=== PATIENT | female | born 1985 | race Hispanic/Latino ===

== ENCOUNTER 2017-07-07 19:54 | Emergency (ER) | payer OTHER, SELFPAY ==
--- NOTE | 2017-07-07 21:49 | RAD REPORT ---
EXAM DESCRIPTION: US - Transvaginal OB - 07/07/2017 9:27 pm CLINICAL HISTORY: with abdominal pain and vaginal bleeding COMPARISON: None. FINDINGS: The evaluation of the endometrium was limited on the endovaginal images. Transabdominal ul trasound was then performed. The uterus measures 11 x 6 x 6 centimeters. A gestational sac is not visualized within the endometri um. A small ill-defined fluid collection is present. Within the myometrium is a fluid collection nicola uring 18 x 6 millimeters. The left ovary is normal in size and echotexture. The right ovary was not seen. Significant free flui d is not visualized. IMPRESSION: A gestational sac within the endometrium is not visualized. A small amount of ill-define d fluid is present. This may indicate an . Other considerations include an early intrauterine in which the gestational sac is not yet seen. Ectopic i can also have this appea soham. This all should be correlated clinically and with serial beta HCG levels. A follow-up ultrasound in 1 week is recommended for re-evaluation
[2017-07-07 23:06] LABS: Absolute Lymphocytes (CBC) 3.5 K/uL (0.7-4.9); Absolute Monocytes 0.6 K/uL (0.1-1.3); Basophils % 0.5 % (0-1.3); Eosinophils % 0.9 % (0-4.4); Hematocrit 37.3 % (36.0-45.0); Lymphocytes % 28.6 % (15.3-44.8); MCH 29.4 pg (27.0-35.0); MCV 88.2 fL (80-100); MPV 8.6 fL (7.6-11.3); Monocytes % 4.7 % (3.3-12.3); RBC Red Blood Cell Count 4.23 M/uL (3.86-4.86)
[2017-07-07 23:11] LABS: Bicarbonate 22 mEq/L (21-31); Glucose Level 265 mg/dL (65-120); Potassium 3.5 mEq/L (3.6-5.0); Sodium Level 135 mEq/L (135-145)
[2017-07-07] MEDS ORDERED: NA CHLORIDE 0.9% 1,000 ML ONE (23:11)
[2017-07-07 23:12] LABS: BUN Blood Urea Nitrogen 12 mg/dL (6-20); Glomerular Filtration Rate > 90 mL/min (=/>90)
--- NOTE | 2017-07-08 00:32 | ER ---
Nurse's Notes [facility] Name: Arabella Horne Age: 31 yrs Sex: Female : 1985 Arrival Date: 07/07/2017 Time: 19:57 Bed 23 Private MD: Diagnosis: Spontaneous Presentation: 07/07 20:16 Presenting complaint: Patient states: that she is 9 weeks and has been fc spotting since Friday. Today she started to bleed heavily around 1800. Also having lower abd and lower back pain. Transition of care: patient was not received from another setting of care. Onset of symptoms was July 04, 2017. Care prior to arrival: None. 20:16 Method Of Arrival: Ambulatory fc 20:16 Acuity: RANDA 3 fc Triage Assessment: 20:19 General: Appears uncomfortable, Behavior is calm, cooperative, appropriate for age. fc Pain: Complains of pain in back and abdomen Quality of pain is described as aching, crampy, Pain began 2 hours ago. Is continuous. EENT: No deficits noted. Neuro: Level of Consciousness is awake, alert, obeys commands, Oriented to person, place, time, situation. Cardiovascular: No deficits noted. Respiratory: No deficits noted. GI: No deficits noted. : Reports vaginal bleeding that is bright red, with clots, heavy flow has gone thru 6 pads since 6 pm. Derm: Skin is pink, warm \\T\\ dry. Musculoskeletal: Circulation, motion, and sensation intact. Capillary refill < 3 seconds, Range of motion: intact in all extremities. 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 - Social history:: Smoking status: Patient/guardian denies using tobacco. Screenin:50 Abuse screen: Denies threats or abuse. Nutritional screening: No deficits noted. tl3 Tuberculosis screening: No symptoms or risk factors identified. Fall Risk None identified. Assessment: 20:50 Obstetrical Assessment: General assessment: awake and alert, anxious, Contractions tl3 Patient reports abdominal cramping, spotting started Friday, saw OB told to just watch and if it got worse to come in to the ER. Tonight at around 5pm pt reports that she felt a "gush" and went to the bathroom passed a 50 cent piece sized blood clot. General: Appears uncomfortable, obese, well groomed, well developed, well nourished, Behavior is calm, cooperative, appropriate for age. Pain: Complains of pain in abdomen. Neuro: Level of Consciousness is awake, alert, obeys commands, Oriented to person, place, time, situation, Appropriate for age. Cardiovascular: Heart tones S1 S2 present Capillary refill < 3 seconds in right in left fingers. Respiratory: Airway is patent Trachea midline Breath sounds are clear bilaterally. GI: No signs and/or symptoms were reported involving the gastrointestinal system. : No signs and/or symptoms were reported regarding the genitourinary system. EENT: No signs and/or symptoms were reported regarding the EENT system. 20:58 Reassessment: pt to ultra sound. tl3 22:11 Reassessment: Patient appears in no apparent distress at this time. No changes from tl3 previously documented assessment. Patient and/or family updated on plan of care and expected duration. Pain level reassessed. Patient is alert, oriented x 3, equal unlabored respirations, skin warm/dry/pink. pelvic exam completed by Dr Harper. 22:55 Reassessment: No changes from previously documented assessment. Patient and/or family tl3 updated on plan of care and expected duration. Pain level reassessed. Patient is alert, oriented x 3, equal unlabored respirations, skin warm/dry/pink. pt feeling weak and sweaty, Dr Doyle at bedside. 07/08 00:16 Reassessment: Patient appears in no apparent distress at this time. Patient and/or tl3 family updated on plan of care and expected duration. Pain level reassessed. Patient is alert, oriented x 3, equal unlabored respirations, skin warm/dry/pink. pt states that she is feeling much better. 00:28 Reassessment: pt able to ambulate around nursing station without difficulty, states tl3 that she does not feel weak anymore. Vital Signs: 07/07 20:17 BP 167 / 111; Pulse 111; Resp 18; Temp 98.7(O); Pulse Ox 97% on R/A; Weight 111.13 kg fc (R); Height 5 ft. 2 in. (157.48 cm) (R); Pain 5/10; 22:11 BP 107 / 74; Pulse 110; Resp 18; Pulse Ox 95% ; tl3 22:55 BP 107 / 74; Pulse 94; Resp 18; Pulse Ox 100% ; tl3 07/08 00:14 BP 122 / 88; Pulse 94; Resp 18; Pulse Ox 100% ; tl3 07/07 20:17 Body Mass Index 44.81 (111.13 kg, 157.48 cm) fc Vitals: 07/07 22:59 Heart Tones too early in . tl3 ED Course: 19:57 Patient arrived in ED. ds1 20:17 Triage completed. fc 20:17 Arm band placed on left wrist. Patient placed in waiting room, Patient notified of wait fc time. 20:34 Ede Harper MD is Attending Physician. gs 20:49 Aliza Gayle, RN is Primary Nurse. tl3 20:50 No apparent distress. Resting quietly. Awaiting ED provider evaluation. tl3 20:50 Patient has correct armband on for positive identification. Placed in gown. Bed in low tl3 position. Call light in reach. Side rails up X 1. Adult w/ patient. 20:50 Pulse ox on. NIBP on. Door closed. Warm blanket given. tl3 20:50 No provider procedures requiring assistance completed. tl3 21:27 US Transvaginal Ob In Process Unspecified. EDMS 21:27 Ultrasound completed. Patient tolerated well. aa4 22:49 Attending Physician role handed off by Ede Harper MD pkl 22:49 Gab Doyle MD is Attending Physician. pkl 22:55 Inserted saline lock: 22 gauge in right forearm, using aseptic technique. Blood tl3 collected. 07/08 00:28 IV discontinued, intact, bleeding controlled, No redness/swelling at site. Pressure tl3 dressing applied. Administered Medications: 07/07 22:59 Drug: NS 0.9% 1000 ml Route: IV; Rate: 1000 ml; Site: right forearm; tl3 07/08 00:39 Follow up: IV Status: Completed infusion; IV Intake: 1000ml tl3 Point of Care Testing: Urine : 00:42 hCG Reading: Positive; tl3 Intake: 00:39 IV: 1000ml; Total: 1000ml. tl3 Outcome: 07/07 22:23 Discharged to home ambulatory. tl3 Condition: stable Discharge instructions given to patient, Instructed on discharge instructions, follow up and referral plans. 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 chino 00:39 Patient left the ED. tl3 Signatures: Dispatcher [employer] EDGab Mata MD MD pkl Chretien, Felicia RN RN Linda Kenney ds1 Jennifer Castillo Gregory, MD MD gs Lowrey, Tammy, RN RN tl3 Corrections: (The following items were deleted from the chart) 07/07 20:19 20:17 Arm band placed on left wrist. Patient placed in an exam room, on a stretcher, [facility]
--- NOTE | 2017-07-08 00:32 | EDPHYS ---
Physician Documentation [facility] Name: Arabella Horne Age: 31 yrs Sex: Female : 1985 Arrival Date: 07/07/2017 Time: 19:57 Bed 23 Private MD: ED Physician Gab Doyle HPI: 07/07 21:37 This 31 yrs old Female presents to ER via Ambulatory with complaints of gs Vaginal Bleeding, + Preg <12wks, Abdominal Cramping. 21:37 The patient presents to the emergency department with vaginal bleeding, that is gs moderate, with clots. The estimated gestational age is 9 weeks. Associated signs and symptoms: Pertinent negatives: chest pain, vomiting. The patient has experienced a previous episode. The patient has been recently seen by a physician: the patient's primary care provider. 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 - Social history:: Smoking status: Patient/guardian denies using tobacco. ROS: 21:37 All other systems are negative. gs 07/08 00:31 Eyes: Negative for injury, pain, redness, and discharge. pkl Exam: 07/07 21:37 Head/Face: Normocephalic, atraumatic. Eyes: Pupils equal round and reactive to light, gs extra-ocular motions intact. Lids and lashes normal. Conjunctiva and sclera are non-icteric and not injected. Cornea within normal limits. Periorbital areas with no swelling, redness, or edema. ENT: Nares patent. No nasal discharge, no septal abnormalities noted. Tympanic membranes are normal and external auditory canals are clear. Oropharynx with no redness, swelling, or masses, exudates, or evidence of obstruction, uvula midline. Mucous membranes moist. Neck: Trachea midline, no thyromegaly or masses palpated, and no cervical lymphadenopathy. Supple, full range of motion without nuchal rigidity, or vertebral point tenderness. No Meningismus. Chest/axilla: Normal chest wall appearance and motion. Nontender with no deformity. No lesions are appreciated. Cardiovascular: Regular rate and rhythm with a normal S1 and S2. No gallops, murmurs, or rubs. Normal PMI, no JVD. No pulse deficits. Respiratory: Lungs have equal breath sounds bilaterally, clear to auscultation and percussion. No rales, rhonchi or wheezes noted. No increased work of breathing, no retractions or nasal flaring. Abdomen/GI: Soft, non-tender, with normal bowel sounds. No distension or tympany. No guarding or rebound. No evidence of tenderness throughout. Back: No spinal tenderness. No costovertebral tenderness. Full range of motion. Skin: Warm, dry with normal turgor. Normal color with no rashes, no lesions, and no evidence of cellulitis. MS/ Extremity: Pulses equal, no cyanosis. Neurovascular intact. Full, normal range of motion. Neuro: Awake and alert, GCS 15, oriented to person, place, time, and situation. Cranial nerves II-XII grossly intact. Motor strength 5/5 in all extremities. Sensory grossly intact. Cerebellar exam normal. Normal gait. Constitutional: The patient appears alert, awake. 21:51 : Pelvic Exam: External exam: is normal, Speculum exam: mild bleeding, blood clots in gs vaginal vault, os that is open, bimanual exam reveals no adnexa tenderness or masses bilaterally, the nurse was present for the exam. Vital Signs: 20:17 BP 167 / 111; Pulse 111; Resp 18; Temp 98.7(O); Pulse Ox 97% on R/A; Weight 111.13 kg fc (R); Height 5 ft. 2 in. (157.48 cm) (R); Pain 5/10; 22:11 BP 107 / 74; Pulse 110; Resp 18; Pulse Ox 95% ; tl3 22:55 BP 107 / 74; Pulse 94; Resp 18; Pulse Ox 100% ; tl3 07/08 00:14 BP 122 / 88; Pulse 94; Resp 18; Pulse Ox 100% ; tl3 07/07 20:17 Body Mass Index 44.81 (111.13 kg, 157.48 cm) MDM: 07/07 20:44 Patient medically screened. gs 21:37 Differential diagnosis: threatened Ab, inevitable Ab, complete Ab, ectopic . gs Data reviewed: vital signs, nurses notes. Response to treatment: the patient's symptoms have mildly improved after treatment, and as a result, I will discharge patient. 07/08 00:31 Patient medically screened. pkl 07/07 20:46 Order name: Quantitative Hcg; Complete Time: 00:19 07/07 20:46 Order name: Abo/rh Typing; Complete Time: 23:50 07/07 20:46 Order name: Basic Metabolic Panel; Complete Time: 00:19 07/07 20:46 Order name: CBC with Diff; Complete Time: 23:50 07/07 20:46 Order name: US Transvaginal Ob; Complete Time: 21:51 07/07 20:46 Order name: IV Saline Lock; Complete Time: 00:40 07/07 20:46 Order name: Labs collected and sent; Complete Time: 00:40 07/07 20:46 Order name: NPO; Complete Time: 00:40 Administered Medications: 07/07 22:59 Drug: NS 0.9% 1000 ml Route: IV; Rate: 1000 ml; Site: right forearm; tl3 07/08 00:39 Follow up: IV Status: Completed infusion; IV Intake: 1000ml tl3 Point of Care Testing: Urine : 00:42 hCG Reading: Positive; tl3 Disposition: 07/08/17 00:31 Discharged to Home. Impression: Spontaneous . - Condition is Stable. - Medication Reconciliation Form, Thank You Letter, Antibiotic Education, Prescription Opioid Use form. - Follow up: Private Physician; When: Tomorrow; Reason: Re-evaluation by your physician. - Problem is new. - Symptoms have improved. Signatures: Dispatcher [employer] EDMS Gab Doyle MD MD pkl Chretien, Felicia RN RN Ede Dodge MD MD Aliza Gayle RN RN tl3 Corrections: (The following items were deleted from the chart) 07/07 23:02 22:58 TROPONIN (EMERG DEPT USE ONLY)+[email or web address] ordered. EDMS EDMS
[2017-07-08 00:48] VITALS: TEMP 98.7
[2017-07-08 00:50] VITALS: O2SAT 100
[2017-07-08 00:52] VITALS: BP 122/88
== END 2017-07-08 00:39 | disposition home or self-care (01) ==
LOC: ER 19:54
DX: O03.9 Complete or unspecified spontaneous abortion without complication
CPT/HCPCS: 36415; 76817; 80048; 84702; 85025; 86900; 86901; 96360; 96361; 99284; J7030

== ENCOUNTER 2019-03-08 17:14 | Emergency (ER) | payer OTHER ==
--- OUTSIDE RECORDS SUMMARY | 2019-03-08 17:22 | XMS REPORT | Summary of Care ---
:1985 Author Organization [facility] Address [address] [place] [address] Care Team Providers Name Role Phone Nisreen Phillips Primary Care Provider Reason for Visit Reason Comments Care Encounter Details Date Type Department Care Team Description 11/10/2018 [facility] Supervision of high risk in second trimester (Primary Dx); Visit KRISTEN Cochran Pregestational diabetes mellitus, modified White class B; [address] Elderly multigravida in second trimester; [place], [place] S Obesity affecting in second trimester; [address] [address] History of delivery, currently ; [phone] [place], [place] Cessation of tobacco use in previous 12 months; [address] Multiparity; [phone] Tubal ligation status; [phone] Pre-existing essential hypertension during , antepartum; (Fax) Rubella non-immune status, antepartum Allergies No Known Allergiesdocumented as of this encounter (statuses as of 11/10/2018) Medications Medication Sig Dispensed Refills Start Date End Date Status Blood-Glucose Meter Check glucose 4 1 Each 0 08/21/2018 Active (TRUE METRIX GLUCOSE xdaily METER) MiscIndications: Pregestational diabetes mellitus, modified White class B blood sugar diagnostic Check glucose 4x 1 Box 3 08/21/2018 Active (TRUE METRIX GLUCOSE daily TEST STRIP) stripIndications: Pregestational diabetes mellitus, modified White class B metFORMIN 500 mg Take 1 tab PO 60 tablet 5 09/10/2018 Active tabletIndications: QAM and 1 tab PO Pre-existing essential QHS hypertension during , antepartum CITRANATAL ASSURE 35 mg TAKE 1 CAPSULE 6 09/03/2018 Active iron-1 mg -50 mg-300 mg AND 1 TABLET BY combo pack MOUTH EVERY DAY lancets 26 gauge Misc CHECK GLUCOSE 4 3 08/21/2018 Active TIMES A DAY aspirin 81 mg EC Take 1 tablet by 60 tablet 6 10/01/2018 Active tabletIndications: mouth daily. Pregestational diabetes mellitus, modified White class B, Pre-existing essential hypertension during , antepartum amoxicillin 500 mg TAKE 1 CAPSULE 0 10/21/2018 Active capsule BY MOUTH FOUR TIMES A DAY TILL ALL TAKEN. TAKE WITH FOOD AND DRINK PLENTY OF WATER clindamycin 300 mg TAKE ONE CAPSULE 0 10/23/2018 Active capsule BY MOUTH 3 TIMES A DAY UNTIL GONE TAKE WITH FOOD AND DRINK PLENTY OF WATER documented as of this encounter (statuses as of 11/10/2018) Active Problems Problem Noted Date Tubal ligation status 10/01/2018 Rubella non-immune status, antepartum 08/21/2018 Overview: Address pp Pregestational diabetes mellitus, modified White class B 08/21/2018 Overview: Failed hr gtt >200mgdl Cessation of tobacco use in previous 12 months 08/19/2018 Overview: Quit with on 07/20/18 Multiparity 08/19/2018 Hypertension in , pre-existing, antepartum 08/19/2018 Overview: Reports when she lost weight her bp was wnl, but she reports she has gained the weight again AMA (advanced maternal age) multigravida 35+ 08/19/2018 Supervision of high risk , antepartum 07/03/2017 Obesity affecting 07/03/2017 History of delivery, currently 07/03/2017 Overview: X2 History of gestational diabetes in prior , currently 2017 Estimated Date of Delivery Comments Yes 03/19/2019 Based on last menstrual period of 06/12/2018 documented as of this encounter (statuses as of 11/10/2018) Resolved Problems Problem Noted Date Resolved Date Previous delivery affecting , antepartum 09/10/20182018 Family planning counseling 01/21/2018 08/19/2018 Rubella non-immune status, antepartum 07/04/2017 08/19/2018 Pregestational diabetes mellitus, modified White class B 07/04/20172018 Anemia of mother in , condition 03/13/2016 07/03/2017 Routine follow-up 03/13/2016 07/03/2017 39 weeks gestation of 02/12/2016 03/13/2016 Decreased movement in , antepartum 01/20/2016 03/13/2016 Gestational diabetes mellitus, antepartum 08/23/2015 07/03/2017 Overview: GDMA2 vs class B DM. Hx GDM in prior . Prior child 9# 14 oz. Hgb A1c 6.3% on 09/27. Started on ADA diet and metformin 500 mg daily. Abnormal maternal glucose tolerance, antepartum 08/16/2015 03/13/2016 Overview: 1hr 176mgdl, 3hr-failed Previous delivery affecting , delivered 08/15/20152015 Overview: Last CS x 1 ([facility] 9 lb 15 oz). 3 prior - 40+ w 7 lb 15oz 39w 8 lb 4 oz, 39 w 9lb 4 oz weeks. Need op note. Interested in HELLEN. Multiparity 08/15/2015 03/13/2016 Supervision of high risk , antepartum 08/15/2015 03/13/2016 Obesity affecting 08/15/2015 03/13/2016 Vaginal bleeding in patient at less than 20 weeks 08/15/20152015 gestation Elevated blood pressure reading without diagnosis of 08/15/2015 03/13/2016 hypertension documented as of this encounter (statuses as of 11/10/2018) Immunizations Name Administration Dates Next Due Influenza Virus Vaccine Quad IM 3+ 01/11/2016, 12/28/2015 (Deferred: YRS Vaccine Unavailable) Tdap 12/28/2015, 11/12/2013 documented as of this encounter Social History Tobacco Use Types Packs/Day Years Used Date Former Smoker Cigarettes 0.01 2014 - 07/20/2018 Smokeless Tobacco: Never Used Comments: 1 ciggarette a day Alcohol Use Drinks/Week oz/Week Comments No 0 Standard drinks or equivalent 0.0 Estimated Date of Delivery Comments Yes 03/19/2019 Based on last menstrual period of 06/12/2018 Sex Assigned at Date Recorded Not on file Job Start Date Occupation Industry Not on file Not on file Not on file Travel History Travel Start Travel End No recent travel history available. documented as of this encounter Last Filed Vital Signs Vital Sign Reading Time Taken Comments Blood Pressure 134/86 11/10/2018 10:23 AM CDT Pulse 77 11/10/2018 10:23 AM CDT Temperature 36.8 C (98.2 F) 11/10/2018 10:23 AM CDT Respiratory Rate 16 11/10/2018 10:23 AM CDT Oxygen Saturation - - Inhaled Oxygen Concentration - - Weight 103.1 kg (227 lb 6 oz) 11/10/2018 10:23 AM CDT Height 154.9 cm (5' 1") 11/10/2018 10:23 AM CDT Body Mass Index 42.96 11/10/2018 10:23 AM CDT documented in this encounter Progress Notes Nisreen Phillips, GLASS BLOCK INSTALLER - 11/10/2018 10:30 AM CDT Chief complaint: Chief Complaint Patient presents with Care HPI Arabella Horne is a 32 year old female is a @ 21w4d here for visit. Patient's last menstrual period was 2018. Estimated Date of Delivery: 03/19/19 Today she denies any complaints or concerns. She is taking PNV. She reports good FM. She denies any ctx/cramping, VB, LOF, KENYON , visual disturbance, vaginal discharge or dysuria. She denies any foreign travel. She also denies any physical, sexual or emotional abuse. Histories OB History Para Term AB Living 7 5 5 1 5 SAB TAB Ectopic Multiple Live Births 1 5 # Outcome Date GA Lbr Trey/2nd Weight Sex Delivery Anes PTL Lv 7 Current 6 SAB 07/13/17 5 Term 02/12/16 37w2d 9 lb 4 oz (4.195 kg) M SEC CSE N KIM Complications: Gestational diabetes 4 Term 11/29/13 40w0d 9 lb 14 oz (4.479 kg) F SEC EPI N KIM 3 Term 05/24/04 40w0d 9 lb 4 oz (4.196 kg) F NORMAL SPONT IV narcotic N KIM 2 Term 06/08/02 40w0d 8 lb 4 oz (3.742 kg) M NORMAL SPONT IV narcotic N KIM 1 Term 03/31/01 40w0d 7 lb 15 oz (3.6 kg) F NORMAL SPONT IV narcotic N KIM Past Medical History: Diagnosis Date Anemia of mother in , condition 03/13/2016 Gestational diabetes mellitus, antepartum 08/23/2015 Hypertension 2010 been off meds x 5 years, bp improved with weight loss Family History Problem Relation Age of Onset Diabetes Mother Hypertension Mother No Significant Medical Problems Father Diabetes Sister Hypertension Maternal Aunt Arthritis NoFHx Asthma NoFHx Breast Cancer NoFHx defects NoFHx Colon Cancer NoFHx Ovarian Cancer NoFHx Uterine Cancer NoFHx Depression NoFHx Heart NoFHx Genetic NoFHx High cholesterol NoFHx Mental retardation NoFHx Psychiatry NoFHx Other - see comments NoFHx Neurological NoFHx Osteoporosis NoFHx Family Status Relation Name Status Mo Alive Fa Alive Sis Alive MAunt Alive MGMo MGFa PGMo Alive PGFa NoFHx (Not Specified) Past Surgical History: Procedure Laterality Date SECTION 11/29/2013 SECTION N/A 02/12/2016 Surgeon: Daniel Munguia; Location: Labor and Delivery - [place] THORACOTOMY,CYST REMOVAL 1991 Social History Socioeconomic History Marital status: Single Spouse name: Not on file Number of children: Not on file Years of education: Not on file Highest education level: Not on file Occupational History Not on file Social Needs Financial resource strain: Not on file Food insecurity: Worry: Not on file Inability: Not on file Transportation needs: Medical: Not on file Non-medical: Not on file Tobacco Use Smoking status: Former Smoker Packs/day: 0.01 Types: Cigarettes Start date: 2014 Last attempt to quit: 07/20/2018 Years since quittin.3 Smokeless tobacco: Never Used Tobacco comment: 1 ciggarette a day Substance and Sexual Activity Alcohol use: No Alcohol/week: 0.0 oz Drug use: No Sexual activity: Yes Partners: Male Comment: Last intercourse 06/16/2018 Lifestyle Physical activity: Days per week: Not on file Minutes per session: Not on file Stress: Not on file Relationships Social connections: Talks on phone: Not on file Gets together: Not on file Attends congregational service: Not on file Active member of club or organization: Not on file Attends meetings of clubs or organizations: Not on file Relationship status: Not on file Intimate partner violence: Fear of current or ex partner: Not on file Emotionally abused: Not on file Physically abused: Not on file Forced sexual activity: Not on file Other Topics Concern Not on file Social History Narrative Pt denies current or past physical, sexual or emotional abuse. Patient lives alone with children. Social History Substance and Sexual Activity Sexual Activity Yes Partners: Male Comment: Last intercourse 06/16/2018 Labs No new labs, I have reviewed the patient's labs. and Routine Visit on 10/26/2018 Component Date Value POCT U SP GRAV 10/26/2018 . POCT PH U 10/26/2018 . POCT U LEUK EST 10/26/2018 . POCT U NIT 10/26/2018 . POCT U PROT 10/26/2018 neg POCT U GLU 10/26/2018 neg POCT U KETONE 10/26/2018 . POCT U UROBILI 10/26/2018 . POCT U BILI 10/26/2018 . POCT U BLD 10/26/2018 . POCT Glu (age>30days) 10/26/2018 112* AFP-MS 10/26/2018 60.9 AFP-MS Interpretation 10/26/2018 Value:NTD SCREENING RESULTS: Gestation Age: Weeks 19 days 3 based on _X_ LMP __ PE __ US. Maternal Serum AFP value in ng/mL is 60.9. The corrected AFP MOM is 1.68. NORMAL RANGE is less than 2.5 MOM in NTD screening. The NTD screen result is: _X_ Negative __ Positive with a risk of 1 in Routine Visit on 10/12/2018 Component Date Value POCT U SP GRAV 10/12/2018 . POCT PH U 10/12/2018 . POCT U LEUK EST 10/12/2018 . POCT U NIT 10/12/2018 . POCT U PROT 10/12/2018 Trace POCT U GLU 10/12/2018 Neg POCT U KETONE 10/12/2018 . POCT U UROBILI 10/12/2018 . POCT U BILI 10/12/2018 . POCT U BLD 10/12/2018 . Radiology Radiology pending. Allergies Arabella has No Known Allergies. Medications Arabella has a current medication list which includes the following prescription(s) : aspirin, citranatal assure, lancets, metformin, blood sugar diagnostic, blood- glucose meter, amoxicillin, and clindamycin. Review of Systems Constitutional: Negative for appetite change, fatigue and fever. Eyes: Negative for visual disturbance. Respiratory: Negative. Cardiovascular: Negative for palpitations and leg swelling. Gastrointestinal: Negative for abdominal pain, constipation, diarrhea, nausea and vomiting. Genitourinary: Negative. Negative for dysuria, vaginal bleeding, vaginal discharge and pelvic pain. Musculoskeletal: Negative. Skin: Negative for rash. Neurological: Negative for dizziness, light-headedness and headaches. Psychiatric/Behavioral: Negative. BP 134/86 (BP Location: Right arm, Patient Position: Sitting, BP CUFF SIZE: Adult Small) | Pulse 77 | Temp 36.8 C (98.2 F) (Oral) | Resp 16 | Ht 5' 1 " (1.549 m) | Wt 227 lb 6 oz (103.1 kg) | LMP 06/12/2018 | BMI 42.96 kg/m Pregravid BMI: Could not be calculated Physical Exam Vitals reviewed. Constitutional: She is oriented to person, place, and time. She appears well- developed and well-nourished. See flowsheet Cardiovascular: No peripheral edema present. Pulmonary/Chest: Normal inspiratory effort. Abdominal: Abdomen is soft. Neuro/Psychiatric: She has a normal mood and affect. She is oriented to person, place, and time. Skin: Skin normal. Assessment/Plan 1. Supervision of high risk in second trimester 21w4d PTL warnings reviewed NIPT WNL, MSAFP WNL Was on amoxicillin and clindamycin for dental work, now stopped 2. Pregestational diabetes mellitus, modified White class B Metformin 500mg BID compliant Glucose log reviewed Fasting BG range 80-96, 2/7 >95 Postprandial BG range 80-130, 4/16 > 120 Continue current diet and regimen, reinforced strict adherence and exact portion control. Daily exercise x 30 minutes. Continue LDA Baseline 24 hour urine 240mg protein 3. Elderly multigravida in second trimester AMA, s/p NIPT and MSAFP WNL, detailed anatomy scan today Has missed appts with genetics, number given to call to reschedule 4. Obesity affecting in second trimester The patient is asked to make an attempt to improve diet and exercise patterns to aid in medical management of this problem. 5. History of delivery, currently Plan ERCS 6. Cessation of tobacco use in previous 12 months Reports compliance 7. Multiparity Desires BTL 8. Tubal ligation status Sign consents at 28 weeks 9. Pre-existing essential hypertension during , antepartum BP today 134/86 Denies s/s PIH States she checks BP at home and WNL, log given to document home BPs and bring to next visit Baseline 24 hr urine 240mg protein 10. Rubella non-immune status, antepartum Offer vaccine Return to clinic in 2 weeks. Reviewed patient instructions and provided printed copy. at 21w4d This visit did not involve counseling and coordination that comprised more than 50% of the visit time. documented in this encounter Plan of Treatment Date Type Specialty Care Team Description 11/24/2018 Routine Visit OB Satellites Nisreen Phillips FNP [address] [place] [address] [phone] 12/08/2018 Tmd Teacher Assistant Visit Maternal Medicine Health Maintenance Due Date Last Done Comments PNEUMOCOCCAL 0-64 YEARS COMBINED 12/02/1989 SERIES (1 of 1 - PPSV23) EYE EXAM 12/02/1993 LDL-C 12/02/1993 URINE MICROALBUMIN 12/02/1993 INFLUENZA VACCINE 12/13/2018 01/11/2016 HgA1C 02/27/2019 08/27/2018, 07/03/2017, 12/11/2015, Additional history exists CREATININE (SERUM) 08/28/2019 08/27/2018, 08/27/2018, 07/03/2017, Additional history exists FOOT EXAM 08/28/2019 08/27/2018 PAP SMEAR 08/19/2021 08/19/2018, 08/15/2015 DTaP,Tdap,and Td Vaccines (3 - Td) 12/27/2025 12/28/2015, 11/12/2013 documented as of this encounter Procedures Procedure Name Priority Date/Time Associated Diagnosis Comments POCT URINALYSIS Routine 11/10/2018 10:48 AM Supervision of high Results for this CDT risk in procedure are in second trimester the results section. documented in this encounter Results POCT URINALYSIS W SPECIFIC GRAVITY (11/10/2018 10:48 AM CDT) POCT U SP GRAV . 1.005 - 1.025 mg/dl POCT PH U . 5 - 8 mg/dl POCT U LEUK EST . Negative - Negative POCT U NIT . Negative - Negative POCT U PROT neg Negative - Negative POCT U GLU neg Negative - Negative POCT U KETONE . Negative - Negative POCT U UROBILI . 0.2 - 1 mg/dl POCT U BILI . Negative - Negative POCT U BLD . Negative - Negative POCT U COLOR POCT U APPEAR Specimen Urine - URINE, CLEAN CATCH documented in this encounter Visit Diagnoses Diagnosis Supervision of high risk in second trimester - Primary Unspecified high-risk Pregestational diabetes mellitus, modified White class B Diabetes mellitus of mother, complicating , childbirth, or the puerperium, unspecified as to episode of care Elderly multigravida in second trimester Obesity affecting in second trimester History of delivery, currently Previous delivery, unspecified as to episode of care or not applicable Cessation of tobacco use in previous 12 months Multiparity Tubal ligation status Pre-existing essential hypertension during , antepartum Rubella non-immune status, antepartum Other specified complication, antepartum documented in this encounter Insurance Payer Benefit Plan / Subscriber ID Effective Dates Phone Address Type Group [facility] xxxxxxxxx 2018-Present Medicaid HEALTH PLAN - HEALTH MANAGED MEDICAID documented as of this encounter Advance Directives Name Relationship Healthcare Agent Relationship Communication Meredith Rios Other Primary healthcare agent
--- OUTSIDE RECORDS SUMMARY | 2019-03-08 17:22 | XMS REPORT | Summary of Care ---
:1985 Author Organization [facility] Address [address] [place] [id number] Care Team Providers Name Role Phone Nisreen Phillips [facility] Primary Care Provider Encounter Details Date Type Department Care Team Description 11/11/2018 Abstract [facility] Valeria Mondragon C, [address] [place] [address] [address] [facility] [phone] [place] [address] Allergies No Known Allergiesdocumented as of this encounter (statuses as of 11/11/2018) Medications Medication Sig Dispensed Refills Start Date [...] as of this encounter (statuses as of 11/11/2018) Active Problems Problem Noted Date Tubal ligation [...] as of this encounter (statuses as of 11/11/2018) Resolved Problems Problem Noted Date Resolved Date [...] delivered 08/15/20152015 Overview: Last CS x 1 ([facility] 9 lb 15 oz). 3 prior - [...] as of this encounter (statuses as of 11/11/2018) Immunizations Name Administration Dates Next Due Influenza [...] of this encounter Last Filed Vital Signs Not on filedocumented in this encounter Plan of Treatment Date Type Specialty Care Team Description 11/24/2018 Routine Visit OB Satellites Nisreen Phillips, QUILLER HAND [address] [place] [address] [phone] 12/08/2018 Director Corporate Security Visit Maternal Medicine Health Maintenance Due Date [...] 12/28/2015, 11/12/2013 documented as of this encounter Results Not on filedocumented in this encounter Insurance Payer Benefit Plan / Subscriber ID Effective Dates Phone Address Type Group [facility] [place] [facility] xxxxxxxxx 2018-Present Medicaid HEALTH PLAN - HEALTH MANAGED MEDICAID documented as of this encounter Advance Directives Name Relationship Healthcare Agent Relationship Communication Meredith Dyson Primary healthcare agent
--- OUTSIDE RECORDS SUMMARY | 2019-03-08 17:22 | XMS REPORT ---
:1985 Author Organization [facility] Address [address] [place] [address] Dr. [address] [place] [address] Care Team Providers Name Role Phone Unavailable Unavailable Unavailable Problems This patient has no known problems. Allergies, Adverse Reactions, Alerts This patient has no known allergies or adverse reactions. Medications This patient has no known medications.
--- OUTSIDE RECORDS SUMMARY | 2019-03-08 17:22 | XMS REPORT | Summary of Care ---
:1985 Author Organization [facility] Address [address] [place] [address] Care Team Providers Name Role Phone Nisreen Phillips Primary Care Provider Encounter Details Date Type Department Care Team Description 11/10/2018 Orders Only [facility] Doctor Unassigned, No [address] [facility] [place] [address] [address] [place] [address] Allergies No Known Allergiesdocumented as of this encounter (statuses as of 11/18/2018) Medications Medication Sig Dispensed Refills Start Date [...] as of this encounter (statuses as of 11/18/2018) Active Problems Problem Noted Date Tubal ligation [...] as of this encounter (statuses as of 11/18/2018) Resolved Problems Problem Noted Date Resolved Date [...] delivered 08/15/20152015 Overview: Last CS x 1 ([facility] 9 lb 15 oz). 3 prior [...] as of this encounter (statuses as of 11/18/2018) Immunizations Name Administration Dates Next Due Influenza [...] 11/24/2018 Routine Visit OB Satellites Nisreen Phillips, MACHINE ADJUSTER LEADER [address] [place] [address] [phone] 12/08/2018 Medical Charge Entry Specialist Visit Maternal Medicine 01/05/2019 Medical Charge Entry Specialist Visit Maternal Medicine 02/02/2019 Medical Charge Entry Specialist Visit Maternal Medicine 03/02/2019 Medical Charge Entry Specialist Visit Maternal Medicine Health Maintenance Due Date [...] Procedure Name Priority Date/Time Associated Diagnosis Comments PATIENT QUESTIONNAIRE Routine 11/10/2018 12:01 AM CDT documented in this encounter Results Not on filedocumented in this encounter Insurance Payer Benefit Plan / Subscriber ID Effective Dates Phone Address Type Group [place] [place] [facility] [place] [facility] xxxxxxxxx 2018-Present Medicaid HEALTH PLAN - HEALTH MANAGED MEDICAID documented as of this encounter Advance Directives Name Relationship Healthcare Agent Relationship Communication Meredith Dyson Primary healthcare agent
--- OUTSIDE RECORDS SUMMARY | 2019-03-08 17:22 | XMS REPORT | Summary of Care ---
:1985 Author Organization [facility] Address [address] [place] [id number] Care Team Providers Name Role Phone Nisreen Phillips Primary Care Provider Reason for Visit Reason Comments Talk To Nurse Encounter Details Date Type Department Care Team Description 11/19/2018 Telephone [facility]- Nisreen Phillips FNP Talk To Nurse Ellen [address] [facility] [place] [address] [place] [address] [phone] Allergies No Known Allergiesdocumented as of this encounter (statuses as of 11/19/2018) Medications Medication Sig Dispensed Refills Start Date [...] as of this encounter (statuses as of 11/19/2018) Active Problems Problem Noted Date Tubal ligation [...] as of this encounter (statuses as of 11/19/2018) Resolved Problems Problem Noted Date Resolved Date [...] 08/15/20152015 Overview: Last CS x 1 ([facility] 9 lb 15 oz). 3 prior - [...] as of this encounter (statuses as of 11/19/2018) Immunizations Name Administration Dates Next Due Influenza [...] 11/24/2018 Routine Visit OB Satellites Nisreen Phillips, INKJET OPERATOR [address] [place] [address] [phone] 12/08/2018 Crown Assembly Machine Set Up Mechanic Visit Maternal Medicine 01/05/2019 Crown Assembly Machine Set Up Mechanic Visit Maternal Medicine 02/02/2019 Crown Assembly Machine Set Up Mechanic Visit Maternal Medicine 03/02/2019 Crown Assembly Machine Set Up Mechanic Visit Maternal Medicine Health Maintenance Due Date [...] ID Effective Dates Phone Address Type Group [place] [facility] [place] [facility] xxxxxxxxx 2018-Present Medicaid HEALTH PLAN - HEALTH MANAGED MEDICAID documented as of this encounter Advance Directives Name Relationship Healthcare Agent Relationship Communication Meredith Rios Other Primary healthcare agent
--- OUTSIDE RECORDS SUMMARY | 2019-03-08 17:22 | XMS REPORT | Summary of Care ---
:1985 Author Organization [facility] Address [address] [place] [address] Care Team Providers Name Role Phone Nisreen Phillips Primary Care Provider Reason for Visit Reason Comments ULTRASOUND (Routine) Status Reason Specialty Diagnoses / Referred By Referred To Procedures Contact Contact Closed Maternal Diagnoses Elderly multigravida in first trimester Pregestational diabetes mellitus, modified White class B Nisreen Phillips Medicine Procedures CONSULT MATERNAL MEDICINE ULTRASOUND Preferred Location: KRISTEN Das [address] [place] [address] Encounter Details Date Type Department Care Team Description 11/10/2018 Meter Repairer [facility] Obesity complicating , second trimester; Ultrasound- Ellen Rhodes MD Diabetes mellitus complicating , antepartum; [address] VD Previous delivery, antepartum condition or complication ; [place], [place] [id number] Maternal care for (suspected) damage to fetus by drugs, not applicable or unspecified; [address] [place], [place] Elderly multigravida in second trimester [phone] Allergies No Known Allergiesdocumented as of this [...] delivered 08/15/20152015 Overview: Last CS x 1 ([facility] 9 lb 15 oz). 3 prior - [...] 11/24/2018 Routine Visit OB Satellites Nisreen Phillips, LAMINATE FLOOR INSTALLER [address] [place] [address] [phone] 12/08/2018 Meter Repairer Visit Maternal Medicine Health Maintenance Due Date [...] Results Not on filedocumented in this encounter Visit Diagnoses Diagnosis Obesity complicating , second trimester Diabetes mellitus complicating , antepartum Diabetes mellitus, antepartum Previous delivery, antepartum condition or complication Maternal care for (suspected) damage to fetus by drugs, not applicable or unspecified Elderly multigravida in second trimester documented in this encounter Insurance Payer Benefit Plan / Subscriber ID Effective Dates Phone Address Type Group [facility] [place] CHILDRENS xxxxxxxxx 2018-Present Medicaid HEALTH PLAN - HEALTH MANAGED MEDICAID documented as of this encounter Advance Directives Name Relationship Healthcare Agent Relationship Communication Meredith Rios Other Primary healthcare agent
--- OUTSIDE RECORDS SUMMARY | 2019-03-08 17:23 | XMS REPORT | Summary of Care ---
:1985 Author [address] [facility] Address [address] [place] [address] Care Team Providers Name Role Phone Nisreen Phillips Primary Care Provider Reason for Visit Reason Comments Care Encounter Details Date Type Department Care Team Description 12/08[facility] Supervision of high risk in second trimester (Primary Dx); Visit KRISTEN Cochran Pregestational diabetes mellitus, modified White class B; [address] Elderly multigravida in second trimester; [place], [place] S History of delivery, currently ; [address] Ones[place] A Pre-existing essential hypertension during , antepartum; [phone] [place], [place] Multiparity; [address] Tubal ligation status; [phone] Obesity affecting in second trimester; [phone] Rubella non-immune status, antepartum (Fax) Allergies No Known Allergiesdocumented as of this encounter (statuses as of 12/08/2018) Medications Medication Sig Dispensed Refills Start Date [...] B, Pre-existing essential hypertension during , antepartum documented as of this encounter (statuses as of 12/08/2018) Active Problems Problem Noted Date Tubal ligation [...] as of this encounter (statuses as of 12/08/2018) Resolved Problems Problem Noted Date Resolved Date [...] delivered 08/15/20152015 Overview: Last CS x 1 ([facility] 9 lb 15 oz). 3 prior [...] as of this encounter (statuses as of 12/08/2018) Immunizations Name Administration Dates Next Due Influenza [...] Sign Reading Time Taken Comments Blood Pressure 121/83 12/08/2018 9:48 AM CDT Pulse 79 12/08/2018 9:48 AM CDT Temperature 36.6 C (97.8 F) 12/08/2018 9:48 AM CDT Respiratory Rate 18 12/08/2018 9:48 AM CDT Oxygen Saturation - - Inhaled Oxygen Concentration - - Weight 104.4 kg (230 lb 4 oz) 12/08/2018 9:48 AM CDT Height 154.9 cm (5' 1") 12/08/2018 9:48 AM CDT Body Mass Index 43.51 12/08/2018 9:48 AM CDT documented in this encounter Progress Notes Nisreen Phillips, SECTION 8 PROPERTY MANAGER - 12/08/2018 9:30 AM CDT Chief complaint: Chief Complaint Patient presents with Care HPI Arabella Horne is a 33 year old female is a @ 25w4d here for visit. Patient's last menstrual period [...] [place]; Location: Labor and Delivery - [facility] [place] THORACOTOMY,CYST REMOVAL 1991 Social History Socioeconomic History [...] file Gets together: Not on file Attends gnosticist service: Not on file Active member of [...] Partners: Male Comment: Last intercourse 06/16/2018 Labs Labs are pending. Radiology Radiology pending. Allergies Arabella has No Known Allergies. Medications Arabella has a current medication list which includes the following prescription(s) : aspirin, citranatal assure, lancets, metformin, blood sugar diagnostic, and blood-glucose meter. Review of Systems Constitutional: Negative for appetite change, fatigue and fever. Eyes: Negative for visual disturbance. Respiratory: Negative. Cardiovascular: Negative for palpitations and leg swelling. Gastrointestinal: Negative for abdominal pain, constipation, diarrhea, nausea and vomiting. Genitourinary: Negative. Negative for dysuria, vaginal bleeding, vaginal discharge and pelvic pain. Musculoskeletal: Negative. Skin: Negative for rash. Neurological: Negative for dizziness, light-headedness and headaches. Psychiatric/Behavioral: Negative. BP 121/83 (BP Location: Right arm, Patient Position: Sitting, BP CUFF SIZE: Adult Small) | Pulse 79 | Temp 36.6 C (97.8 F) (Oral) | Resp 18 | Ht 5' 1 " (1.549 m) | Wt 230 lb 4 oz (104.4 kg) | LMP 06/12/2018 | BMI 43.51 kg/m Pregravid BMI: 42.3 Physical Exam Vitals reviewed. Constitutional: She is oriented to person, place, and time. She appears well- developed and well-nourished. See flowsheet Cardiovascular: No peripheral edema present. Pulmonary/Chest: Normal inspiratory effort. Abdominal: Abdomen is soft. Neuro/Psychiatric: She has a normal mood and affect. She is oriented to person, place, and time. Skin: Skin normal. Assessment/Plan 1. Supervision of high risk in second trimester 25w4d PTL warnings reviewed CBC today - POCT URINALYSIS W SPECIFIC GRAVITY - CBC WITH DIFF - CBC WITH DIFFERENTIAL 2. Pregestational diabetes mellitus, modified White class B On metformin, struggling with diet and exercise Did not bring glucose log today, stressed importance of bringing glucose log to every visit POCT glucose today 97 Continue current diet and regimen, reinforced strict adherence and exact portion control. Daily exercise x 30 minutes. - POCT GLUCOSE(AGE >30DAYS) 3. Elderly multigravida in second trimester S/p detailed anatomy, has not scheduled genetics. Pt called to schedule while in office today, appointment 12/28/18 4. History of delivery, currently Previous c/s x 2 5. Pre-existing essential hypertension during , antepartum BP today 121/83, did not bring BP log No s/s PIH Continue LDA Baseline 24h urine completed 6. Multiparity Desires BTL 7. Tubal ligation status Sign consents at 28 weeks 8. Obesity affecting in second trimester The patient is asked to make an attempt to improve diet and exercise patterns to aid in medical management of this problem. 9. Rubella non-immune status, antepartum Offer vaccine . Return to clinic in 2 weeks. Reviewed patient instructions and provided printed copy. at 25w4d This visit did not involve counseling and coordination that comprised more than 50% of the visit time. documented in this encounter Plan of Treatment Date Type Specialty Care Team Description 12/22/2018 Routine Visit OB Satellites Nisreen Phillips FNP [address] [facility] [place] [address] [phone] 12/28/2018 Office Visit OB Satellites Consults, Rmchp Ang Pn Genetic 01/05/2019 Personal Banker Visit Maternal Medicine 02/02/2019 Personal Banker Visit Maternal Medicine 03/02/2019 Personal Banker Visit Maternal Medicine Name Type Priority Associated Diagnoses Date/Time CBC WITH DIFF LAB Routine Supervision of high risk 12/08/2018 10:03 AM CDT in second trimester CBC WITH DIFFERENTIAL LAB Routine Supervision of high risk 12/08/2018 10: 03 AM CDT in second trimester Health Maintenance Due Date Last Done Comments PNEUMOCOCCAL 0-64 YEARS COMBINED 12/02/1989 SERIES (1 of 1 - PPSV23) EYE EXAM 12/02/1993 LDL-C 12/02/1993 URINE MICROALBUMIN 12/02/1993 INFLUENZA VACCINE (#1) 2018 01/11/2016 HgA1C 02/27/2019 08/27/2018, 07/03/2017, 12/11/2015, Additional history exists CREATININE (SERUM) 08/28/2019 08/27/2018, 08/27/2018, 07/03/2017, Additional history exists FOOT EXAM 08/28/2019 08/27/2018 PAP SMEAR 08/19/2021 08/19/2018, 08/15/2015 DTaP,Tdap,and Td Vaccines (3 - Td) 12/27/2025 12/28/2015, 11/12/2013 documented as of this encounter Procedures Procedure Name Priority Date/Time Associated Diagnosis Comments POCT GLUCOSE(AGE Routine 12/08/2018 11:39 Pregestational Results for this >30DAYS) AM CDT diabetes mellitus, procedure are in modified White class B the results section. POCT URINALYSIS Routine 12/08/2018 9:51 Supervision of high Results for this AM CDT risk in procedure are in second trimester the results section. documented in this encounter Results POCT GLUCOSE(AGE >30DAYS) (12/08/2018 11:39 AM CDT) POCT Glu (age>30days) 97 70 - 110 mg/dL Specimen Blood - CAPILLARY Narrative Performed At accurate development and interpretation of all internal controls POCT URINALYSIS W SPECIFIC GRAVITY (12/08/2018 9:51 AM CDT) POCT U SP GRAV . [...] of care Elderly multigravida in second trimester History of delivery, currently Previous delivery, unspecified as to episode of care or not applicable Pre-existing essential hypertension during , antepartum Multiparity Tubal ligation status Obesity affecting in second trimester Rubella non-immune status, antepartum Other specified complication, antepartum documented in this encounter Insurance Payer Benefit Plan / Subscriber ID Effective Dates Phone Address Type Group [facility] CHILDRENS xxxxxxxxx 2018-Present Medicaid HEALTH PLAN - HEALTH MANAGED MEDICAID documented as of this encounter Advance Directives Name Relationship Healthcare Agent Relationship Communication Meredith Rios Other Primary healthcare agent
--- OUTSIDE RECORDS SUMMARY | 2019-03-08 17:23 | XMS REPORT | Summary of Care ---
:1985 Author Organization [facility] Address [address] [place] [address] Care Team Providers Name Role Phone Nisreen Phillips Primary Care Provider Encounter Details Date Type Department Care Team Description 11/24/2018 Orders Only [facility] Doctor Unassigned, No [address] [facility] [place] [address] [address] [place] [address] Allergies No Known Allergiesdocumented as of this encounter (statuses as of 11/27/2018) Medications Medication Sig Dispensed Refills Start Date [...] as of this encounter (statuses as of 11/27/2018) Active Problems Problem Noted Date Tubal ligation [...] as of this encounter (statuses as of 11/27/2018) Resolved Problems Problem Noted Date Resolved Date [...] Last CS x 1 ([facility] 9 lb 15 oz). 3 prior [...] as of this encounter (statuses as of 11/27/2018) Immunizations Name Administration Dates Next Due Influenza [...] Treatment Date Type Specialty Care Team Description 12/08/2018 Routine Visit OB Satellites Nisreen Phillips, HOT BLAST WORKER [address] [place] [address] [phone] 12/08/2018 Telegraph And Teletype Operator Visit Maternal Medicine 01/05/2019 Telegraph And Teletype Operator Visit Maternal Medicine 02/02/2019 Telegraph And Teletype Operator Visit Maternal Medicine 03/02/2019 Telegraph And Teletype Operator Visit Maternal Medicine Health Maintenance Due Date Last Done Comments PNEUMOCOCCAL 0-64 YEARS COMBINED 12/02/1989 SERIES (1 of 1 - PPSV23) EYE EXAM 12/02/1993 LDL-C 12/02/1993 URINE MICROALBUMIN 12/02/1993 INFLUENZA VACCINE (Retired 12/13/2018 01/11/2016 version) HgA1C 02/27/2019 08/27/2018, 07/03/2017, 12/11/2015, Additional history exists CREATININE (SERUM) 08/28/2019 08/27/2018, 08/27/2018, 07/03/2017, Additional history exists FOOT EXAM 08/28/2019 08/27/2018 PAP SMEAR 08/19/2021 08/19/2018, 08/15/2015 DTaP,Tdap,and Td Vaccines (3 - Td) 12/27/2025 12/28/2015, 11/12/2013 documented as of this encounter Procedures Procedure Name Priority Date/Time Associated Diagnosis Comments PATIENT QUESTIONNAIRE Routine 11/24/2018 12:01 AM CDT documented in this encounter Results Not on filedocumented in this encounter Insurance Payer Benefit Plan / Subscriber ID Effective Dates Phone Address Type Group [place] [facility] [place] CHILDRENS xxxxxxxxx 2018-Present Medicaid HEALTH PLAN - HEALTH MANAGED MEDICAID documented as of this encounter Advance Directives Name Relationship Healthcare Agent Relationship Communication Meredith Dyson Primary healthcare agent
--- OUTSIDE RECORDS SUMMARY | 2019-03-08 17:23 | XMS REPORT | Summary of Care ---
:1985 Author Organization [facility] Address [address] [place] [address] Care Team Providers Name Role Phone Nisreen Phillips [facility] Primary Care Provider Encounter Details Date Type Department Care Team Description 12/08/2018 Abstract [facility] Valeria Mondragon C, [address] [place] [address] [address] [facility] [phone] [place] [address] Allergies No Known Allergiesdocumented as [...] delivered 08/15/20152015 Overview: Last CS x 1 ([facility] 9 lb 15 oz). 3 prior [...] Description 12/22/2018 Routine Visit OB Satellites Nisreen Phillips, WET CLEANER MACHINE [address] [place] [address] [phone] 12/28/2018 Office Visit OB Satellites Consults, Rmchp Ang Pn Genetic 01/05/2019 Digital Developer Visit Maternal Medicine 02/02/2019 Digital Developer Visit Maternal Medicine 03/02/2019 Digital Developer Visit Maternal Medicine Health Maintenance Due Date [...] ID Effective Dates Phone Address Type Group [place] [facility] xxxxxxxxx 2018-Present Medicaid HEALTH PLAN - HEALTH MANAGED MEDICAID documented as of this encounter Advance Directives Name Relationship Healthcare Agent Relationship Communication Meredith Rios Other Primary healthcare agent
--- OUTSIDE RECORDS SUMMARY | 2019-03-08 17:23 | XMS REPORT | Summary of Care ---
:1985 Author Organization [facility] Address [address] [place] [address] Care Team Providers Name Role Phone Nisreen Phillips Primary Care Provider Reason for Visit Reason Comments Care Encounter Details Date Type Department Care Team Description 11/24/2018 [facility] Supervision of high risk in second trimester (Primary Dx); Visit KRISTEN Cochran Elderly multigravida in second trimester; [address] History of delivery, currently ; [place], [place] S Pre-existing essential hypertension during , antepartum; [address] [place] A Obesity affecting in second trimester; [phone] [place], [place] Pregestational diabetes mellitus, modified White class B; [address] Multiparity; [phone] Tubal ligation status; [phone] Rubella non-immune status, antepartum; (Fax) Cessation of tobacco use in previous 12 months Allergies No Known Allergiesdocumented as of this encounter (statuses as of 11/24/2018) Medications Medication Sig Dispensed Refills Start Date End Date Status Blood-Glucose Meter Check glucose 1 Each 0 08/21/2018 Active (TRUE METRIX GLUCOSE 4 xdaily METER) MiscIndications: Pregestational diabetes mellitus, modified White class B blood sugar Check glucose 1 Box 3 08/21/2018 Active diagnostic (TRUE 4x daily METRIX GLUCOSE TEST STRIP) stripIndications: Pregestational diabetes mellitus, modified White class B metFORMIN 500 mg Take 1 tab PO 60 tablet 5 09/10/2018 Active tabletIndications: QAM and 1 tab Pre-existing PO QHS essential hypertension during , antepartum CITRANATAL ASSURE 35 TAKE 1 6 09/03/2018 Active mg iron-1 mg -50 CAPSULE AND 1 mg-300 mg combo pack TABLET BY MOUTH EVERY DAY lancets 26 gauge CHECK GLUCOSE 3 08/21/2018 Active Misc 4 TIMES A DAY aspirin 81 mg EC Take 1 tablet 60 tablet 6 10/01/2018 Active tabletIndications: by mouth Pregestational daily. diabetes mellitus, modified White class B, Pre-existing essential hypertension during , antepartum amoxicillin 500 mg TAKE 1 0 10/21/2018 11/24/2018 Discontinued capsule CAPSULE BY MOUTH FOUR TIMES A DAY TILL ALL TAKEN. TAKE WITH FOOD AND DRINK PLENTY OF WATER clindamycin 300 mg TAKE ONE 0 10/23/2018 11/24/2018 Discontinued capsule CAPSULE BY MOUTH 3 TIMES A DAY UNTIL GONE TAKE WITH FOOD AND DRINK PLENTY OF WATER documented as of this encounter (statuses as of 11/24/2018) Active Problems Problem Noted Date Tubal ligation [...] as of this encounter (statuses as of 11/24/2018) Resolved Problems Problem Noted Date Resolved Date [...] delivered 08/15/20152015 Overview: Last CS x 1 ([facility] 9 lb 15 oz). 3 prior [...] as of this encounter (statuses as of 11/24/2018) Immunizations Name Administration Dates Next Due Influenza [...] Sign Reading Time Taken Comments Blood Pressure 130/80 11/24/2018 10:35 AM CDT Pulse 79 11/24/2018 10:35 AM CDT Temperature 37 C (98.6 F) 11/24/2018 10:35 AM CDT Respiratory Rate 16 11/24/2018 10:35 AM CDT Oxygen Saturation - - Inhaled Oxygen Concentration - - Weight 103.6 kg (228 lb 8 oz) 11/24/2018 10:35 AM CDT Height 154.9 cm (5' 1") 11/24/2018 10:35 AM CDT Body Mass Index 43.17 11/24/2018 10:35 AM CDT documented in this encounter Progress Notes Nisreen Phillips, SENIOR SOFTWARE QUALITY ANALYST - 11/24/2018 10:30 AM CDT Chief complaint: Chief Complaint Patient presents with Care HPI Arabella Horne is a 32 year old female is a @ 23w4d here for visit. Patient's last menstrual period was 2018. Estimated Date of Delivery: 03/19/19 Today she denies any complaints or concerns. She is taking PNV, Metformin and aspirin. Reports has not been compliant with diet and exercise since last visit. She reports good FM. She denies any ctx/ cramping, VB, LOF, KENYON, visual disturbance, vaginal discharge or dysuria. She [...] [place]; Location: Labor and Delivery - [facility] [place] THORACOTOMY,CYST REMOVAL 1991 Social History Socioeconomic History [...] file Gets together: Not on file Attends pentecostal service: Not on file Active member of [...] Comment: Last intercourse 06/16/2018 Labs No new labs and I have reviewed the patient's labs. Radiology Radiology pending. Allergies Arabella has No Known Allergies. Medications Arabella has a current medication list which includes the following prescription(s) : aspirin, citranatal assure, lancets, metformin, blood sugar diagnostic, and blood-glucose meter. Review of Systems Constitutional: Positive for fatigue. Negative for appetite change and fever. Eyes: Negative for visual disturbance. Respiratory: Negative. Cardiovascular: Negative for palpitations and leg swelling. Gastrointestinal: Negative for abdominal pain, constipation, diarrhea, nausea and vomiting. Genitourinary: Negative. Negative for dysuria, vaginal bleeding, vaginal discharge and pelvic pain. Musculoskeletal: Negative. Skin: Negative for rash. Neurological: Negative for dizziness, light-headedness and headaches. Psychiatric/Behavioral: Negative. BP 130/80 (BP Location: Right arm, Patient Position: Sitting, BP CUFF SIZE: Adult Small) | Pulse 79 | Temp 37 C (98.6 F) (Oral) | Resp 16 | Ht 5' 1" (1.549 m) | Wt 228 lb 8 oz (103.6 kg) | LMP 06/12/2018 | BMI 43.17 kg/m Pregravid BMI: Could not be calculated [...] Supervision of high risk in second trimester 23w4d PTL warnings reviewed - POCT URINALYSIS W SPECIFIC GRAVITY 2. Elderly multigravida in second trimester S/p detailed anatomy scan, patient has yet to schedule genetic counseling, phone number provided andpatient encouraged to call to schedule. 3. History of delivery, currently Plan ERCS 4. Pre-existing essential hypertension during , antepartum BP today BP log reviewed, 106-130/68-86 Denies s/s PIH Continue BP monitoring Continue daily LDA Baseline 24 hour urine completed 5. Obesity affecting in second trimester The patient is asked to make an attempt to improve diet and exercise patterns to aid in medical management of this problem. 6. Pregestational diabetes mellitus, modified White class B On metformin, reports non compliance with diet d/t stressors with mother's health. Verbalizes she isgoing to focus more on diet and exercising like she was. Glucose log reviewed. FBS range 88-93, 0/6 >95 2HR GTT range 110-130, 10/15 >135 Continue current diet and regimen, reinforced strict adherence and exact portion control. Daily exercise x 30 minutes. 7. Multiparity Desires BTL 8. Tubal ligation status Sign consents at 28 weeks 9. Rubella non-immune status, antepartum Offer vaccine . 10. Cessation of tobacco use in previous 12 months Reports compliance with cessation Return to clinic in 2 weeks. Discussed treatment options. Medications as ordered. Reviewed patient instructions and provided printed copy. at 23w4d This visit did not involve counseling and coordination that comprised more than 50% of the visit time. documented in this encounter Plan of Treatment Date Type Specialty Care Team Description 12/08/2018 Routine Visit OB Satellites Nisreen Phillips FNP [address] [place] [address] [phone] 12/08/2018 Garnett Machine Operator Helper Visit Maternal Medicine 01/05/2019 Garnett Machine Operator Helper Visit Maternal Medicine 02/02/2019 Garnett Machine Operator Helper Visit Maternal Medicine 03/02/2019 Garnett Machine Operator Helper Visit Maternal Medicine Health Maintenance Due Date [...] Date/Time Associated Diagnosis Comments POCT URINALYSIS Routine 11/24/2018 10:37 AM Supervision of high Results for this CDT risk in procedure are in second trimester the results section. documented in this encounter Results POCT URINALYSIS W SPECIFIC GRAVITY (11/24/2018 10:37 AM CDT) POCT U SP GRAV . 1.005 - 1.025 mg/dl POCT PH U . 5 - 8 mg/dl POCT U LEUK EST . Negative - Negative POCT U NIT . Negative - Negative POCT U PROT neg Negative - Negative POCT U GLU 3+ Negative - Negative POCT U KETONE . Negative - Negative POCT U UROBILI . 0.2 - 1 mg/dl POCT U BILI . Negative - Negative POCT U BLD . Negative - Negative POCT U COLOR . POCT U APPEAR Specimen Urine - URINE, CLEAN CATCH documented in this encounter Visit Diagnoses Diagnosis Supervision of high risk in second trimester - Primary Unspecified high-risk Elderly multigravida in second trimester History of delivery, currently Previous delivery, unspecified as to episode of care or not applicable Pre-existing essential hypertension during , antepartum Obesity affecting in second trimester Pregestational diabetes mellitus, modified White class B Diabetes mellitus of mother, complicating , childbirth, or the puerperium, unspecified as to episode of care Multiparity Tubal ligation status Rubella non-immune status, antepartum Other specified complication, antepartum Cessation of tobacco use in previous 12 months documented in this encounter Insurance Payer Benefit Plan / Subscriber ID Effective Dates Phone Address Type Group [place] [facility] [place] xxxxxxxxx 2018-Present Medicaid HEALTH PLAN - [facility] MEDICAID documented as of this encounter Advance Directives Name Relationship Healthcare Agent Relationship Communication Meredith Rios Other Primary healthcare agent
--- OUTSIDE RECORDS SUMMARY | 2019-03-08 17:23 | XMS REPORT | Summary of Care ---
:1985 Author Organization [facility] Address [address] [place] [address] Care Team Providers Name Role Phone Nisreen Phillips Primary Care Provider Reason for Visit Reason Comments ULTRASOUND (Routine) Status Reason Specialty Diagnoses / Referred By Referred To Procedures Contact Contact Authorized OG-OBSTETRICS & Diagnoses f/u growth- ama/ DM sade: 03/19/19 Ayesha Britt-Ultrasound GYNECOLOGY / Procedures CONSULT MATERNAL MEDICINE ULTRASOUND CHG US, UTERUS,F/U,TRANSABD LANDEN ULTRASOUND 45 MD Meagan [address] [facility] [id number] [place] [phone] Phone: Fax: Encounter Details Date Type Department Care Team Description 12/08/2018 Sales Training [facility], HOBBING MACHINE OPERATOR [address] [place], [place] [address] Elderly multigravida with antepartum condition or complication; Ultrasound- Lance Mcknight 301 [facility] [id number] [place], [place] [id number] Obesity complicating in second trimester; [place] Maternal care for scar from previous delivery, unspecified prior delivery type; [address] Pre-existing type 2 diabetes mellitus [place] [phone] Allergies No Known Allergiesdocumented as of this [...] delivered 08/15/20152015 Overview: Last CS x 1 ([facility] 9 lb 15 oz). 3 prior [...] 12/22/2018 Routine Visit [facility] Satellites Nisreen Phillips, HOBBING MACHINE OPERATOR [address] [place], [place] [address] 12/28/2018 Office Visit OB Satellites Consults, Rmchp Ang Pn Genetic 01/05/2019 Sales Training Coordinator Visit Maternal Medicine 02/02/2019 Sales Training Coordinator Visit Maternal Medicine 03/02/2019 Sales Training Coordinator Visit Maternal Medicine Health Maintenance Due Date [...] filedocumented in this encounter Visit Diagnoses Diagnosis Elderly multigravida with antepartum condition or complication Obesity complicating in second trimester Obesity complicating , childbirth, or the puerperium, antepartum condition or complication Maternal care for scar from previous delivery, unspecified prior delivery type Pre-existing type 2 diabetes mellitus in in second trimester Diabetes mellitus of mother, complicating , childbirth, or the puerperium, unspecified as to episode of care documented in this encounter Insurance Payer Benefit Plan / Subscriber ID Effective Dates Phone Address Type Group [facility] xxxxxxxxx 2018-Present Medicaid HEALTH PLAN - HEALTH MANAGED MEDICAID documented as of this encounter Advance Directives Name Relationship Healthcare Agent Relationship Communication Meredith Rios Other Primary healthcare agent
--- OUTSIDE RECORDS SUMMARY | 2019-03-08 17:24 | XMS REPORT | Summary of Care ---
:1985 Author Organization [facility] - [facility] Address [address] [place] [address] Care Team Providers Name Role Phone Nisreen Phillips Primary Care Provider Encounter Details Date Type Department Care Team Description 12/22/2018 Orders Only [facility] Doctor Unassigned, No 301 [facility] [place] [address] 301 [place] [address] Allergies No Known Allergiesdocumented as of this encounter (statuses as of 12/25/2018) Medications Medication Sig Dispensed Refills Start Date [...] as of this encounter (statuses as of 12/25/2018) Active Problems Problem Noted Date Tubal ligation [...] as of this encounter (statuses as of 12/25/2018) Resolved Problems Problem Noted Date Resolved Date [...] delivered 08/15/20152015 Overview: Last CS x 1 ([facility] 9 lb 15 oz). 3 [...] as of this encounter (statuses as of 12/25/2018) Immunizations Name Administration Dates Next Due Influenza [...] Treatment Date Type Specialty Care Team Description 12/28/2018 Routine Visit [facility] Satellites Nisreen Phillips, STEM ROLLER OR CRUSHER OPERATOR [address] [place] [address] [phone] 12/28/2018 Office Visit OB Satellites Consults, Rmchp Ang Pn Genetic 01/05/2019 Medical Interpreter Visit Maternal Medicine 02/02/2019 Medical Interpreter Visit Maternal Medicine 03/02/2019 Medical Interpreter Visit Maternal Medicine Health Maintenance Due Date [...] Date/Time Associated Diagnosis Comments PATIENT QUESTIONNAIRE Routine 12/22/2018 12:01 AM CDT documented in this encounter Results Not on filedocumented in this encounter Insurance Payer Benefit Plan / Subscriber ID Effective Dates Phone Address Type Group [facility] [place] [facility] xxxxxxxxx 2018-Present Medicaid HEALTH PLAN - HEALTH MANAGED MEDICAID documented as of this encounter Advance Directives Name Relationship Healthcare Agent Relationship Communication Meredith Dyson Primary healthcare agent
--- OUTSIDE RECORDS SUMMARY | 2019-03-08 17:24 | XMS REPORT | Summary of Care ---
:1985 Author Organization [facility] Address [address] [place] [address] Care Team Providers Name Role Phone Nisreen Phillips Primary Care Provider Reason for Visit Reason Comments Care Encounter Details Date Type Department Care Team Description 12/28/2018 [facility] Supervision of high risk in third trimester (Primary Dx); Visit KRISTEN Cochran Elderly multigravida in third trimester; [address] History of delivery, currently ; [place], [place] S Pre-existing essential hypertension during , antepartum; [phone] [address] Multiparity; [phone] [place], [place] Tubal ligation status; [address] Obesity affecting in third trimester; [phone] Pregestational diabetes mellitus, modified White class B; [phone] Rubella non-immune status, antepartum; (Fax) Supervision of high risk , antepartum Allergies No Known Allergiesdocumented as of this encounter (statuses as of 12/28/2018) Medications Medication Sig Dispensed Refills Start Date [...] as of this encounter (statuses as of 12/28/2018) Active Problems Problem Noted Date Tubal ligation [...] as of this encounter (statuses as of 12/28/2018) Resolved Problems Problem Noted Date Resolved Date [...] delivered 08/15/20152015 Overview: Last CS x 1 ([facility] 9 lb 15 oz). 3 [...] as of this encounter (statuses as of 12/28/2018) Immunizations Name Administration Dates Next Due Influenza Virus Vaccine Quad IM 3+ 01/11/2016, 12/28/2015 (Deferred: YRS Vaccine Unavailable) TDAP (ADACEL) VACCINE 12/28/2018 Tdap 12/28/2015, 11/12/2013 documented as of this [...] Sign Reading Time Taken Comments Blood Pressure 128/90 12/28/2018 11:23 AM CDT Pulse 66 12/28/2018 11:23 AM CDT Temperature 37 C (98.6 F) 12/28/2018 11:23 AM CDT Respiratory Rate 16 12/28/2018 11:23 AM CDT Oxygen Saturation - - Inhaled Oxygen Concentration - - Weight 105 kg (231 lb 7 oz) 12/28/2018 11:23 AM CDT Height 154.9 cm (5' 1") 12/28/2018 11:23 AM CDT Body Mass Index 43.73 12/28/2018 11:23 AM CDT documented in this encounter Progress Notes Nisreen Phillips, AGRICULTURAL EQUIPMENT SALESPERSON - 12/28/2018 11:00 AM CDT Chief complaint: Chief Complaint Patient presents with Care HPI Arabella Horne is a 33 year old female is a @ 28w3d here for visit. Patient's last menstrual period [...] [place]; Location: Labor and Delivery - [place] THORACOTOMY,CYST REMOVAL 1991 Social History Socioeconomic History [...] Last attempt to quit: 07/20/2018 Years since quittin.4 Smokeless tobacco: Never Used Tobacco comment: 1 [...] file Gets together: Not on file Attends congregation service: Not on file Active member of [...] Partners: Male Comment: Last intercourse 06/16/2018 Labs I have reviewed the patient's labs. and Labs are pending. Radiology No new radiology. Allergies Arabella has No Known Allergies. Medications [...] dizziness, light-headedness and headaches. Psychiatric/Behavioral: Negative. BP 128/90 (BP Location: Right arm, Patient Position: Sitting, BP CUFF SIZE: Adult Small) | Pulse 66 | Temp 37 C (98.6 F) (Oral) | Resp 16 | Ht 5' 1" (1.549 m) | Wt 231 lb 7 oz (105 kg) | LMP 06/12/2018 | BMI 43.73 kg/m Pregravid BMI: 42.3 Physical Exam Vitals [...] Assessment/Plan 1. Supervision of high risk in third trimester 28w3d Labor precautions, FKC and PIH warnings reviewed. 28 week labs, teaching and tdap today - HIV 1/2 AG-AB WITH REFLEX - GALV ONLY - [facility] IGG/IGM - TDAP (ADACEL) IMMUNIZATION - POCT URINALYSIS W SPECIFIC GRAVITY 2. Elderly multigravida in third trimester S/p detailed anatomy scan WNL Has genetic counseling appointment later today 3. History of delivery, currently Previous c/s x 2, plan repeat ERCS 4. Pre-existing essential hypertension during , antepartum BP today 128/90 Did not bring BP log, reports she is check at home and averaging 120/70 5. Multiparity Desires BTL 6. Tubal ligation status Consents signed today 7. Obesity affecting in third trimester The patient is asked to make an attempt to improve diet and exercise patterns to aid in medical management of this problem. 8. Pregestational diabetes mellitus, modified White class B Taking metformin Reports struggling with diet and exercise Glucose log reviewed. FBS range 80-99, 3/5 >95 2HR GTT range 90-130, 7/12 >120 Greater than 50% fasting and postprandial elevated Will refer to high risk for consult on medication Continue current diet and regimen, reinforced strict adherence and exact portion control. Daily exercise x 30 minutes. 9. Rubella non-immune status, antepartum Offer vaccine . Return to clinic in 2 weeks. Reviewed patient instructions and provided printed copy. at 28w3d This visit did not involve counseling and coordination that comprised more than 50% of the visit time. Samara Urnea LVN - 12/28/2018 11:00 AM CDTPt desires permanent sterilization. Discussed the 1/200 failure rate and the increased risk for ectopic with pt. Pt counseled on the risk of infection, hemorrhage, perforation to surrounding organs, reaction to anesthesia, and the high risk of regret with the procedure. Pt declines keno terminal operator methods, including the iud and nexplanon. She is sure that she does not want any more children. Bilateral tubal ligation consent signed and copy given to pt. Samara Urena LVN - 12/28/2018 11:00 AM CDTPatient provided with 28 weeks packet; stressed the importance of the kick count of 10 x within 2 hours; patient verbalized understanding. Tdap given IM to right deltoid per aseptic tech; site massaged; band-aid applied ; tolerated well; VIS given and reviewed with patient at this time. Shared decision plan completed today. Reviewed s/s of labor. PHQ2 done at this time. Patient denies any complications at this time. documented in this encounter Plan of Treatment Date Type Specialty Care Team Description 12/28/2018 Office Visit OB Satellites Nisreen Phillips, AGRICULTURAL EQUIPMENT SALESPERSON [address] [place], [place] [address] Yisel Lopez [address] [place] [address] 01/05/2019 Draughtsman Visit Maternal Medicine 01/07/2019 Routine [facility] Satellites Risk, Visit Cyt-Sydox-Wx/High 02/02/2019 Draughtsman Visit Maternal Medicine 03/02/2019 Draughtsman Visit Maternal Medicine Name Type Priority Associated Diagnoses Date/Time HIV 1/2 AG-AB WITH LAB Routine Supervision of high risk 12/28/2018 11:23 AM CDT REFLEX in third trimester GALV ONLY - [facility] LAB Routine Supervision of high risk 12/28/2018 11:23 AM CDT IGG/IGM in third trimester Health Maintenance Due Date Last Done [...] Date/Time Associated Diagnosis Comments POCT URINALYSIS Routine 12/28/2018 11:25 Supervision of high Results for this AM CDT risk in procedure are in third trimester the results section. TDAP (ADACEL) Routine 12/28/2018 11:19 Supervision of high IMMUNIZATION AM CDT risk in third trimester documented in this encounter Results POCT URINALYSIS W SPECIFIC GRAVITY (12/28/2018 11:25 AM CDT) POCT U SP GRAV . [...] Diagnoses Diagnosis Supervision of high risk in third trimester - Primary Unspecified high-risk Elderly multigravida in third trimester History of delivery, currently Previous delivery, unspecified as to episode of care or not applicable Pre-existing essential hypertension during , antepartum Multiparity Tubal ligation status Obesity affecting in third trimester Pregestational diabetes mellitus, modified White class B Diabetes mellitus of mother, complicating , childbirth, or the puerperium, unspecified as to episode of care Rubella non-immune status, antepartum Other specified complication, antepartum Supervision of high risk , antepartum documented in this encounter Insurance Payer Benefit Plan / Subscriber ID Effective Dates Phone Address Type Group [facility] xxxxxxxxx 2018-Present Medicaid HEALTH PLAN - HEALTH MANAGED MEDICAID documented as of this encounter Advance Directives Name Relationship Healthcare Agent Relationship Communication Meredith Rios Other Primary healthcare agent
--- OUTSIDE RECORDS SUMMARY | 2019-03-08 17:24 | XMS REPORT | Summary of Care ---
:1985 Author Organization [facility] Address [address] [place] [address] Care Team Providers Name Role Phone Nisreen Phillips Primary Care Provider Reason for Visit Reason Comments Care Encounter Details Date Type Department Care Team Description 12/28/2018 [facility] Supervision of high risk in third trimester (Primary Dx); Visit KRISTEN Cochran Elderly multigravida in third trimester; [address] History of delivery, currently ; [place], [place] S Pre-existing essential hypertension during , antepartum; [phone] [address] Multiparity; [phone] [place], [place] Tubal ligation status; [address] Obesity affecting in third trimester; [phone] Pregestational diabetes mellitus, modified White class B; [phone] Rubella non-immune status, antepartum; (Fax) Supervision of [...] delivered 08/15/20152015 Overview: Last CS x 1 ([facility] 9 lb 15 oz). 3 prior [...] in this encounter Progress Notes Nisreen Phillips, SPECIAL EDUCATION INSTRUCTOR - 12/28/2018 11:00 AM CDT Chief complaint: [...] [place]; Location: Labor and Delivery - [place] THORACOTOMY,CYST REMOVAL 1991 Social History Socioeconomic History [...] file Gets together: Not on file Attends mandaeism service: Not on file Active member of [...] than 50% of the visit time. Samara Urena LVN - 12/28/2018 11:00 AM CDTPt desires permanent sterilization. Discussed the 1/200 failure rate and the increased risk for ectopic with pt. Pt counseled on the risk of infection, hemorrhage, perforation to surrounding organs, reaction to anesthesia, and the high risk of regret with the procedure. Pt declines extermination inspector methods, including the iud and nexplanon. She [...] 12/28/2018 Office Visit OB Satellites Nisreen Phillips, SPECIAL EDUCATION INSTRUCTOR [address] [place], [place] [address] Yisel Lopez [address] [place] [address] 01/05/2019 Car Customizer Visit Maternal Medicine 01/07/2019 Routine [facility] Satellites Risk, Visit Qfm-Oaxdv-Er/High 02/02/2019 Car Customizer Visit Maternal Medicine 03/02/2019 Car Customizer Visit Maternal Medicine Name Type Priority Associated [...] ID Effective Dates Phone Address Type Group [facility] xxxxxxxxx 2018-Present Medicaid HEALTH PLAN - HEALTH MANAGED MEDICAID documented as of this encounter Advance Directives Name Relationship Healthcare Agent Relationship Communication Meredith Rios Other Primary healthcare agent
--- OUTSIDE RECORDS SUMMARY | 2019-03-08 17:24 | XMS REPORT | Summary of Care ---
:1985 Author Organization [facility] Address [address] [place] [address] Care Team Providers Name Role Phone Nisreen Phillips Primary Care Provider Reason for Visit Reason Comments Care Encounter Details Date Type Department Care Team Description 12/22/2018 [facility] Supervision of high risk in second trimester (Primary Dx); Visit KRISTEN Cochran Elderly multigravida in second trimester; [address] History of delivery, currently ; [place], [place] S Pre-existing essential hypertension during , antepartum; [address] [address] Multiparity; [phone] [place], [place] Tubal ligation status; [address] Obesity affecting in second trimester; [phone] Pregestational diabetes mellitus, modified White class B; [phone] Rubella non-immune status, antepartum; (Fax) Supervision of high risk , antepartum Allergies No Known Allergiesdocumented as of this encounter (statuses as of 12/22/2018) Medications Medication Sig Dispensed Refills Start Date [...] as of this encounter (statuses as of 12/22/2018) Active Problems Problem Noted Date Tubal ligation [...] as of this encounter (statuses as of 12/22/2018) Resolved Problems Problem Noted Date Resolved Date [...] delivered 08/15/20152015 Overview: Last CS x 1 ([facility] 9 lb 15 oz). 3 prior [...] as of this encounter (statuses as of 12/22/2018) Immunizations Name Administration Dates Next Due Influenza [...] Sign Reading Time Taken Comments Blood Pressure 122/72 12/22/2018 11:05 AM CDT Pulse 78 12/22/2018 11:00 AM CDT Temperature 36.5 C (97.7 F) 12/22/2018 11:00 AM CDT Respiratory Rate 16 12/22/2018 11:00 AM CDT Oxygen Saturation - - Inhaled Oxygen Concentration - - Weight 104.8 kg (231 lb) 12/22/2018 11:00 AM CDT Height 154.9 cm (5' 1") 12/22/2018 11:00 AM CDT Body Mass Index 43.65 12/22/2018 11:00 AM CDT documented in this encounter Progress Notes Nisreen Phillips, OILING MACHINE OPERATOR - 12/22/2018 10:45 AM CDT Chief complaint: Chief Complaint Patient presents with Care HPI Arabella Horne is a 33 year old female is a @ 27w4d here for visit. Patient's last menstrual period was 2018. Estimated Date of Delivery: 03/19/19 Today she denies any complaints or concerns. She is taking PNV, aspirin and Metformin. She reports good FM. She denies any ctx/cramping, VB, LOF,KENYON, visual disturbance, vaginal discharge or dysuria. She denies any foreign travel. She also deniesany physical, sexual or emotional abuse. Histories OB [...] Daniel [place]; Location: Labor and Delivery - [place] THORACOTOMY,CYST REMOVAL 1991 Social History Socioeconomic History [...] file Gets together: Not on file Attends buddhist service: Not on file Active member of [...] I have reviewed the patient's labs. Radiology No new radiology. Allergies Arabella has [...] dizziness, light-headedness and headaches. Psychiatric/Behavioral: Negative. BP 122/72 (BP Location: Left arm, Patient Position: Sitting, BP CUFF SIZE: Adult Medium) | Pulse 78 | Temp 36.5 C (97.7 F) (Oral) | Resp 16 | Ht 5' 1" (1.549 m) | Wt 231 lb (104.8 kg) | LMP 06/12/2018 | BMI 43.65 kg/m Pregravid BMI: 42.3 Physical Exam Vitals [...] Supervision of high risk in second trimester 27w4d 28 week labs next visit PTL warnings reviewed - POCT URINALYSIS W SPECIFIC GRAVITY - HIV 1/2 AG-AB WITH REFLEX; Future - GALV ONLY - [facility] IGG/IGM; Future - TDAP (ADACEL) IMMUNIZATION; Future 2. Elderly multigravida in second trimester S/p detailed anatomy Has genetic counseling scheduled NIPT and MSAFP WNL 3. History of delivery, currently Plan ERCS 4. Pre-existing essential hypertension during , antepartum BP today 125/91 and 122/72 Reports not check BP at home because machine broke, plans to purchase another. Taking daily LDA 5. Multiparity Desires BTL 6. Tubal ligation status Sign consents at next visit 7. Obesity affecting in second trimester The patient is asked to make an attempt to improve diet and exercise patterns to aid in medical management of this problem. 8. Pregestational diabetes mellitus, modified White class B Taking metformin Reports struggling with diet and exercise Glucose log reviewed. FBS range 90-98, 3/6 >95 2HR GTT range 99-140, 5/12 >120 Continue current diet and regimen, reinforced strict adherence and exact portion control. Daily exercise x 30 minutes. 9. Rubella non-immune status, antepartum Offer vaccine . 10. Supervision of high risk , antepartum Offer vaccine . Return to clinic in 1 weeks. Reviewed patient instructions and provided printed copy. at 27w4d This visit did not involve counseling and coordination that comprised more than 50% of the visit time. documented in this encounter Plan of Treatment Date Type Specialty Care Team Description 12/28/2018 Routine Visit OB Satellites Nisreen Phillips FNP [address] [place] [address] [phone] 12/28/2018 Office Visit OB Satellites Consults, Nilochp Ang Pn Genetic 01/05/2019 Freight Loading Supervisor Visit Maternal Medicine 02/02/2019 Freight Loading Supervisor Visit Maternal Medicine 03/02/2019 Freight Loading Supervisor Visit Maternal Medicine Name Type Priority Associated Diagnoses Order Schedule HIV 1/2 AG-AB WITH LAB Routine Supervision of high Expected: REFLEX risk in 12/29/2018, second trimester Expires: 01/21/2019 GALV ONLY - [facility] LAB Routine Supervision of high Expected: IGG/IGM risk in 12/29/2018, second trimester Expires: 01/21/2019 TDAP (ADACEL) IMMUNIZATION/I Routine Supervision of high Expected: IMMUNIZATION NJECTION risk in 12/29/2018, second trimester Expires: 01/21/2019 Health Maintenance Due Date Last Done Comments [...] Date/Time Associated Diagnosis Comments POCT URINALYSIS Routine 12/22/2018 1:00 PM Supervision of high Results for this CDT risk in procedure are in second trimester the results section. documented in this encounter Results POCT URINALYSIS W SPECIFIC GRAVITY (12/22/2018 1:00 PM CDT) POCT U SP GRAV . 1.005 [...] ligation status Obesity affecting in second trimester Pregestational diabetes mellitus, modified White class B Diabetes mellitus of mother, complicating , childbirth, or the puerperium, unspecified as to episode of care Rubella non-immune status, antepartum Other specified complication, antepartum Supervision of high risk , antepartum documented in this encounter Insurance Payer Benefit Plan / Subscriber ID Effective Dates Phone Address Type Group [facility] [place] [facility] xxxxxxxxx 2018-Present Medicaid HEALTH PLAN - [facility] MANAGED MEDICAID documented as of this encounter Advance Directives Name Relationship Healthcare Agent Relationship Communication Meredith Rios Other Primary healthcare agent
[2019-03-08] MEDS ORDERED: Magnesium Sulfate 2gm IVPB 4 G/100 ML BAG IV ONE (18:10)
[2019-03-08] MEDS ORDERED: LABETALOL 20 MG/4ML SYRINGE IV ONE ×2 (18:10→19:11)
--- NOTE | 2019-03-08 18:30 | RAD REPORT ---
EXAM DESCRIPTION: RAD - Chest Single View - 03/08/2019 6:20 pm CLINICAL HISTORY: COUGH Chest pain. COMPARISON: <Comparisons> FINDINGS: Portable technique limits examination quality. The lungs are grossly clear. The heart is normal in size. No displaced fractures. IMPRESSION: No acute intrathoracic process suspected.
[2019-03-08 18:44] LABS: Basophils % 0.2 % (0-1.3); Hematocrit 29.5 % (36.0-45.0); Lymphocytes % 25.1 % (15.3-44.8); MPV 8.4 fL (7.6-11.3); RBC Red Blood Cell Count 3.28 M/uL (3.86-4.86)
[2019-03-08 18:55] LABS: Protime INR 0.94
[2019-03-08 19:02] LABS: ALT/SGPT 23 U/L (12-78); AST/SGOT 28 U/L (15-37); Albumin 2.4 g/dL (3.4-5.0); Alkaline Phosphatase 76 U/L (45-117); BUN Blood Urea Nitrogen 9 mg/dL (7-18); Bicarbonate 25 mmol/L (21-32); Bilirubin Direct 0.1 mg/dL (0-0.2); Bilirubin Total 0.3 mg/dL (0.2-1.0); Glucose Level 114 mg/dL (74-106); Magnesium 1.6 mg/dL (1.8-2.4); NT PRO-BNP 71 pg/mL (<125); Potassium 3.5 mmol/L (3.5-5.1); Protein, Total 6.5 g/dL (6.4-8.2); Sodium Level 141 mmol/L (136-145); Troponin (Emerg Dept Use Only) < 0.02 ng/mL (0.0-0.045)
[2019-03-08] MEDS ORDERED: LABETALOL HCL 100 MG TAB ONE (19:11)
--- NOTE | 2019-03-08 20:36 | EDPHYS ---
Physician Documentation [facility] Name: Arabella Horne Age: 33 yrs Sex: Female : 1985 Arrival Date: 03/08/2019 Time: 17:16 Bed 8 Private MD: ED Physician Mahesh Sharp HPI: 03/08 18:59 This 33 yrs old Female presents to ER via Ambulatory with complaints of High iris Blood Pressure. 18:59 The patient has elevated blood pressure and discovered this at home. Onset: The iris symptoms/episode began/occurred 1 day(s) ago. Modifying factors: The symptoms are aggravated by activity, The symptoms are alleviated by remaining still. Associated signs and symptoms: The patient has no apparent associated signs or symptoms. Severity of symptoms: At its worst the blood pressure was moderate, in the emergency department the blood pressure is unchanged. The patient has not experienced similar symptoms in the past. 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 - Social history:: Smoking status: Patient/guardian denies using tobacco. - Ebola Screening: : No symptoms or risks identified at this time. - Family history:: not pertinent. ROS: 18:59 Constitutional: Negative for fever, chills, and weight loss, Eyes: Negative for injury, iris pain, redness, and discharge, ENT: Negative for injury, pain, and discharge, Neck: Negative for injury, pain, and swelling, Cardiovascular: Negative for chest pain, palpitations, and edema, Respiratory: Negative for shortness of breath, cough, wheezing, and pleuritic chest pain, Back: Negative for injury and pain, : Negative for injury, bleeding, discharge, and swelling, MS/Extremity: Negative for injury and deformity, Skin: Negative for injury, rash, and discoloration, Neuro: Negative for headache, weakness, numbness, tingling, and seizure, Psych: Negative for depression, anxiety, suicide ideation, homicidal ideation, and hallucinations, Allergy/Immunology: Negative for hives, rash, and allergies, Endocrine: Negative for neck swelling, polydipsia, polyuria, polyphagia, and marked weight changes. 18:59 Abdomen/GI: Negative for abdominal pain. Exam: 18:59 Constitutional: This is a well developed, well nourished patient who is awake, alert, iris and in no acute distress. Head/Face: Normocephalic, atraumatic. Eyes: Pupils equal round and reactive to light, extra-ocular motions intact. Lids and lashes normal. Conjunctiva and sclera are non-icteric and not injected. Cornea within normal limits. Periorbital areas with no swelling, redness, or edema. ENT: Nares patent. No nasal discharge, no septal abnormalities noted. Tympanic membranes are normal and external auditory canals are clear. Oropharynx with no redness, swelling, or masses, exudates, or evidence of obstruction, uvula midline. Mucous membranes moist. Neck: Trachea midline, no thyromegaly or masses palpated, and no cervical lymphadenopathy. Supple, full range of motion without nuchal rigidity, or vertebral point tenderness. No Meningismus. Chest/axilla: Normal chest wall appearance and motion. Nontender with no deformity. No lesions are appreciated. Cardiovascular: Regular rate and rhythm with a normal S1 and S2. No gallops, murmurs, or rubs. Normal PMI, no JVD. No pulse deficits. Respiratory: Lungs have equal breath sounds bilaterally, clear to auscultation and percussion. No rales, rhonchi or wheezes noted. No increased work of breathing, no retractions or nasal flaring. Abdomen/GI: Soft, non-tender, with normal bowel sounds. No distension or tympany. No guarding or rebound. No evidence of tenderness throughout. Back: No spinal tenderness. No costovertebral tenderness. Full range of motion. Skin: Warm, dry with normal turgor. Normal color with no rashes, no lesions, and no evidence of cellulitis. MS/ Extremity: Pulses equal, no cyanosis. Neurovascular intact. Full, normal range of motion. Neuro: Awake and alert, GCS 15, oriented to person, place, time, and situation. Cranial nerves II-XII grossly intact. Motor strength 5/5 in all extremities. Sensory grossly intact. Cerebellar exam normal. Normal gait. Psych: Awake, alert, with orientation to person, place and time. Behavior, mood, and affect are within normal limits. Vital Signs: 17:24 BP 166 / 112; Pulse 110; Resp 16; Temp 98.7; Pulse Ox 100% on R/A; Weight 102.51 kg; la1 Height 5 ft. 2 in. (157.48 cm); 17:30 BP 161 / 114; Pulse 113; Resp 16 S; Pulse Ox 99% on R/A; Pain 0/10; jl7 18:00 BP 171 / 114; Pulse 112; Resp 19 S; Pulse Ox 99% on R/A; jl7 18:35 BP 151 / 85; Pulse 97; Resp 17 S; Pulse Ox 99% on R/A; jl7 18:47 BP 162 / 107; Pulse 95; Resp 17 S; Pulse Ox 99% on R/A; jl7 18:51 BP 147 / 93; Pulse 100; Resp 19 S; Pulse Ox 98% on R/A; jl7 19:00 BP 147 / 98; Pulse 98; Resp 18; Temp 98.0; Pulse Ox 99% on R/A; ea 20:04 BP 133 / 88; Pulse 98; Resp 18; Pulse Ox 100% on R/A; ea 20:50 BP 128 / 77; Pulse 96; Resp 18; Temp 98.2; Pulse Ox 98% ; ea 17:24 Body Mass Index 41.34 (102.51 kg, 157.48 cm) la1 MDM: 17:27 Patient medically screened. [facility] 19:01 Data reviewed: vital signs, nurses notes, lab test result(s), EKG, radiologic studies. [facility] 03/08 17:51 Order name: Basic Metabolic Panel; Complete Time: 19:16 [facility] 03/08 17:51 Order name: CBC with Diff; Complete Time: 19:02 [facility] 03/08 17:51 Order name: LFT's; Complete Time: 19:16 [facility] 03/08 17:51 Order name: Magnesium; Complete Time: 19:16 [facility] 03/08 17:51 Order name: NT PRO-BNP; Complete Time: 19:16 [facility] 03/08 17:51 Order name: PT-INR; Complete Time: 19:16 [facility] 03/08 17:51 Order name: Troponin (emerg Dept Use Only); Complete Time: 19:16 [facility] 03/08 17:51 Order name: XRAY Chest (1 view); Complete Time: 19:02 [facility] 03/08 18:59 Order name: Urine Culture [facility] 03/08 20:46 Order name: Urine Dipstick--Ancillary (enter results) [facility] 03/08 20:46 Order name: Urine --Ancillary (enter results) [facility] 03/08 17:51 Order name: EKG; Complete Time: 17:52 [facility] 03/08 17:51 Order name: Cardiac monitoring; Complete Time: 18:08 [facility] 03/08 17:51 Order name: EKG - Nurse/Tech; Complete Time: 18:07 [facility] 03/08 17:51 Order name: IV Saline Lock; Complete Time: 18:50 [facility] 03/08 17:51 Order name: Labs collected and sent; Complete Time: 18:50 [facility] 03/08 17:51 Order name: O2 Per Protocol; Complete Time: 18:08 [facility] 03/08 17:51 Order name: O2 Sat Monitoring; Complete Time: 18:08 [facility] 03/08 17:51 Order name: Seizure Precautions; Complete Time: 18:49 [facility] 03/08 18:59 Order name: Urine Dipstick-Ancillary (obtain specimen); Complete Time: 20:24 [facility] Administered Medications: 18:30 Drug: Trandate 20 mg Route: IVP; Site: right antecubital; jl7 19:09 Follow up: Response: No adverse reaction [facility] 18:44 Drug: Magnesium Sulfate 2 grams Route: IVPB; Infused Over: 1 hrs; Site: right jl7 antecubital; 20:04 Follow up: Response: No adverse reaction; IV Status: Completed infusion; IV Intake: ea 100ml 19:16 Drug: Trandate 100 mg Route: PO; rv 20:23 Follow up: Response: No adverse reaction ea 19:26 Drug: Trandate 10 mg Route: IVP; Site: right antecubital; rv 20:23 Follow up: Response: No adverse reaction; Marked relief of symptoms ea 20:04 Drug: Magnesium Sulfate 2 grams Route: IVPB; Infused Over: 1 hrs; Site: right ea antecubital; 21:00 Follow up: IV Status: Completed infusion ea 20:54 Not Given (Hemodynamic Parameters): Trandate 20 mg IVP once; Over 2 minutes ea Disposition: 03/08/19 20:35 Discharged to Home. Impression: Essential (primary) hypertension, Hypomagnesemia, Urinary tract infection, site not specified. - Condition is Stable. - Discharge Instructions: Hypertension, Hypomagnesemia, Preeclampsia and Eclampsia, Urinary Tract Infection, Adult, Urinary Tract Infection, Adult, [id number], Hypertension, Xawz-[id number], How to Take Your Blood Pressure, Dycn-hx-Doog, Managing Your Hypertension. - Prescriptions for Trandate 200 mg Oral Tablet - take 0.5 tablet by ORAL route every 12 hours; 30 tablet. Keflex 500 mg Oral Capsule - take 1 capsule by ORAL route every 6 hours for 7 days; 28 capsule. - Medication Reconciliation Form, Thank You Letter, Antibiotic Education, Prescription Opioid Use form. - Follow up: Private Physician; When: Tomorrow; Reason: Recheck today's complaints, Continuance of care, Re-evaluation by your physician. Follow up: Estuardo Floyd MD; When: 2 - 3 days; Reason: Recheck today's complaints, Continuance of care, Re-evaluation by your physician. - Problem is new. - Symptoms have improved. Signatures: Dispatcher [employer] Mahesh Bunn MD MD cha Attema, Genaro, SALES OPERATIONS DIRECTOR-C SALES OPERATIONS DIRECTOR-Cla1 Robert Eddy RN RN jl7 Celi Beltre RN RN Donald Man RN RN rv Corrections: (The following items were deleted from the chart) 20:36 20:35 03/08/2019 20:35 Discharged to Home. Impression: Essential (primary) iris hypertension; Hypomagnesemia. Condition is Stable. Forms are Medication Reconciliation Form, Thank You Letter, Antibiotic Education, Prescription Opioid Use. Follow up: Private Physician; When: Tomorrow; Reason: Recheck today's complaints, Continuance of care, Re-evaluation by your physician. Problem is new. Symptoms have improved. iris 20:43 20:36 03/08/2019 20:35 Discharged to Home. Impression: Essential (primary) iris hypertension; Hypomagnesemia. Condition is Stable. Forms are Medication Reconciliation Form, Thank You Letter, Antibiotic Education, Prescription Opioid Use. Follow up: Private Physician; When: Tomorrow; Reason: Recheck today's complaints, Continuance of care, Re-evaluation by your physician. Follow up: Estuardo Floyd; When: 2 - 3 days; Reason: Recheck today's complaints, Continuance of care, Re-evaluation by your physician. Problem is new. Symptoms have improved. iris 21:03 20:43 03/08/2019 20:35 Discharged to Home. Impression: Essential (primary) ea hypertension; Hypomagnesemia; Urinary tract infection, site not specified. Condition is Stable. Discharge Instructions: Hypertension, Hypomagnesemia, Preeclampsia and Eclampsia, Hypertension, [id number]-[id number], How to Take Your Blood Pressure, Vqsr-pw-Ypie, Managing Your Hypertension. Prescriptions for Trandate 200 mg Oral Tablet - take 0.5 tablet by ORAL route every 12 hours; 30 tablet. and Forms are Medication Reconciliation Form, Thank You Letter, Antibiotic Education, Prescription Opioid Use. Follow up: Private Physician; When: Tomorrow; Reason: Recheck today's complaints, Continuance of care, Re-evaluation by your physician. Follow up: Estuardo Floyd; When: 2 - 3 days; Reason: Recheck today's complaints, Continuance of care, Re-evaluation by your physician. Problem is new. Symptoms have improved. iris
--- NOTE | 2019-03-08 20:36 | ER ---
Nurse's Notes [facility] Name: Arabella Horne Age: 33 yrs Sex: Female : 1985 Arrival Date: 03/08/2019 Time: 17:16 Bed 8 Private MD: Diagnosis: Essential (primary) hypertension;Hypomagnesemia;Urinary tract infection, site not specified Presentation: 03/08 17:22 Presenting complaint: Patient states: I am about three days post , they took my la1 baby at 38 weeks due to concern for pre eclampsia. Everything was fine but now my BP and HR are running high again. Transition of care: patient was not received from another setting of care. Onset of symptoms was March 08, 2019. Risk Assessment: Do you want to hurt yourself or someone else? Patient reports no desire to harm self or others. Initial Sepsis Screen: Does the patient meet any 2 criteria? No. Patient's initial sepsis screen is negative. Does the patient have a suspected source of infection? No. Patient's initial sepsis screen is negative. Care prior to arrival: None. 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 - Social history:: Smoking status: Patient/guardian denies using tobacco. - Ebola Screening: : No symptoms or risks identified at this time. - Family history:: not pertinent. Screenin:30 Abuse screen: Denies threats or abuse. Denies injuries from another. Nutritional jl7 screening: No deficits noted. Tuberculosis screening: No symptoms or risk factors identified. Fall Risk IV access (20 points). Total Mitchell Fall Scale indicates No Risk (0-24 pts). Assessment: 17:30 General: Appears in no apparent distress. uncomfortable, Behavior is cooperative, jl7 anxious. Pain: Denies pain. Neuro: Level of Consciousness is awake, alert, obeys commands, Oriented to person, place, time, situation. Cardiovascular: Patient's skin is warm and dry. Respiratory: Airway is patent Respiratory effort is even, unlabored, Respiratory pattern is regular, symmetrical. GI: No signs and/or symptoms were reported involving the gastrointestinal system. : No signs and/or symptoms were reported regarding the genitourinary system. EENT: No signs and/or symptoms were reported regarding the EENT system. Derm: Skin is pink, warm \T\ dry. 18:30 Reassessment: Patient appears in no apparent distress at this time. No changes from jl7 previously documented assessment. Patient and/or family updated on plan of care and expected duration. Pain level reassessed. Patient is alert, oriented x 3, equal unlabored respirations, skin warm/dry/pink. 19:00 General: Appears in no apparent distress. Behavior is calm, cooperative. Pain: Denies ea pain. Neuro: Level of Consciousness is awake, alert, obeys commands, Oriented to person, place, time, situation. Cardiovascular: Patient's skin is warm and dry. Respiratory: Airway is patent Respiratory effort is even, unlabored, Respiratory pattern is regular, symmetrical. Derm: Skin is pink, warm \T\ dry. 20:21 Reassessment: Patient and/or family updated on plan of care and expected duration. Pain ea level reassessed. Patient is alert, oriented x 3, equal unlabored respirations, skin warm/dry/pink. 20:47 Reassessment: Patient and/or family updated on plan of care and expected duration. Pain ea level reassessed. Patient is alert, oriented x 3, equal unlabored respirations, skin warm/dry/pink. Provider at bedside updating pt on plan of care. 20:59 Reassessment: Patient and/or family updated on plan of care and expected duration. Pain ea level reassessed. Patient is alert, oriented x 3, equal unlabored respirations, skin warm/dry/pink. Discharge instruction given to patient, verbalized the understanding of instruction. Pt left ED ambulatory accompanied by family. Pt tolerating well Patient states feeling better. Patient states symptoms have improved. Vital Signs: 17:24 BP 166 / 112; Pulse 110; Resp 16; Temp 98.7; Pulse Ox 100% on R/A; Weight 102.51 kg; la1 Height 5 ft. 2 in. (157.48 cm); 17:30 BP 161 / 114; Pulse 113; Resp 16 S; Pulse Ox 99% on R/A; Pain 0/10; jl7 18:00 BP 171 / 114; Pulse 112; Resp 19 S; Pulse Ox 99% on R/A; jl7 18:35 BP 151 / 85; Pulse 97; Resp 17 S; Pulse Ox 99% on R/A; jl7 18:47 BP 162 / 107; Pulse 95; Resp 17 S; Pulse Ox 99% on R/A; jl7 18:51 BP 147 / 93; Pulse 100; Resp 19 S; Pulse Ox 98% on R/A; jl7 19:00 BP 147 / 98; Pulse 98; Resp 18; Temp 98.0; Pulse Ox 99% on R/A; ea 20:04 BP 133 / 88; Pulse 98; Resp 18; Pulse Ox 100% on R/A; ea 20:50 BP 128 / 77; Pulse 96; Resp 18; Temp 98.2; Pulse Ox 98% ; ea 17:24 Body Mass Index 41.34 (102.51 kg, 157.48 cm) la1 ED Course: 17:16 Patient arrived in ED. as 17:23 Triage completed. la1 17:24 Arm band placed on left wrist. la1 17:27 Mahesh Sharp MD is Attending Physician. iris 17:28 Donald Rivas, CHYNA is Primary Nurse. rv 17:30 Patient has correct armband on for positive identification. Placed in gown. Bed in low jl7 position. Call light in reach. Side rails up X 1. spreader box operator on. Pulse ox on. NIBP on. Warm blanket given. 17:38 EKG done, by ED staff, reviewed by Mahesh Sharp MD. 3 18:21 XRAY Chest (1 view) In Process Unspecified. EDMS 18:30 Initial lab(s) drawn, by ky, sent to lab. Inserted saline lock: 22 gauge in right jl7 antecubital area, using aseptic technique. Blood collected. 18:47 ED physician to see patient. jl7 20:36 Estuardo Floyd MD is Referral Physician. iris 20:54 No provider procedures requiring assistance completed. ea 21:03 IV discontinued, intact, bleeding controlled, No redness/swelling at site. Pressure ea dressing applied. Administered Medications: 18:30 Drug: Trandate 20 mg Route: IVP; Site: right antecubital; jl7 19:09 Follow up: Response: No adverse reaction jl7 18:44 Drug: Magnesium Sulfate 2 grams Route: IVPB; Infused Over: 1 hrs; Site: right jl7 antecubital; 20:04 Follow up: Response: No adverse reaction; IV Status: Completed infusion; IV Intake: ea 100ml 19:16 Drug: Trandate 100 mg Route: PO; rv 20:23 Follow up: Response: No adverse reaction ea 19:26 Drug: Trandate 10 mg Route: IVP; Site: right antecubital; rv 20:23 Follow up: Response: No adverse reaction; Marked relief of symptoms ea 20:04 Drug: Magnesium Sulfate 2 grams Route: IVPB; Infused Over: 1 hrs; Site: right ea antecubital; 21:00 Follow up: IV Status: Completed infusion ea 20:54 Not Given (Hemodynamic Parameters): Trandate 20 mg IVP once; Over 2 minutes ea Intake: 20:04 IV: 100ml; Total: 100ml. ea Outcome: 20:35 Discharge ordered by . irsi 21:00 Condition: stable ea 21:03 Discharged to home ambulatory, with family. ea 21:03 Discharge instructions given to patient, Instructed on discharge instructions, follow up and referral plans. medication usage, Demonstrated understanding of instructions, follow-up care, medications, Prescriptions given X 3. 21:03 Patient left the ED. ea Addendum: 03/17/2019 10:25 Addendum: Culture Results: Positive urine culture. No further action required. Other: s s Sensitive to cephalosporins. OK per Jina Stephens NP. Bacteria is resistant to, has intermediate sensitivity, or is not tested against prescribed antibiotics. Report given to LANDEN for further evaluation and then to bodywork therapist for follow up with patient. Signatures: Dispatcher [employer] EDLA Mahesh Sharp MD MD cha Martinez, Amelia as Smirch, Shelby, RN RN ss Attema, Lee, BASEBALL UMPIRE FOR LITTLE LEAGUE-C BASEBALL UMPIRE FOR LITTLE LEAGUE-Cla1 Robert Eddy RN RN jl7 Herrera, Deanna formerly [facility] Celi Beltre RN RN ea Vicente, Ronaldo, RN RN rv
[2019-03-08 20:56] LABS: Urine Blood 2+ (NEG); Urine Glucose NEGATIVE (NEG); Urine Protein NEGATIVE (NEG); Urine pH 6.5 (5.0-7.0)
[2019-03-08 22:24] VITALS: BP 128/77; TEMP 98.2; O2SAT 98
--- NOTE | 2019-03-09 05:30 | EKG ---
Test Date: 2019-03-08 Test Time: 17:38:40 Natural Science Manager: ABIEL MEASUREMENT RESULTS: Intervals: Rate: 113 NH: 146 QRSD: 92 QT: 330 QTc: 452 [place]: P: 69 NH: 146 QRS: 51 T: 37 INTERPRETIVE STATEMENTS: Sinus tachycardia Otherwise normal ECG Compared to ECG 08/31/2010 00:01:02 Sinus rhythm no longer present T-wave abnormality no longer present Electronically Signed On 03-09-19 05:30:00 FIXING MACHINE OPERATOR by Prasanna Mercado
== END 2019-03-08 21:03 | disposition home or self-care (01) ==
LOC: ER 17:14
DX: I10 Essential (primary) hypertension (principal); E83.42 Hypomagnesemia; N39.0 Urinary tract infection, site not specified
CPT/HCPCS: 96365; 93005; 87088; 85025; 87086; 80048; 36415; 83735; 81025; 85610; 80076; 87077 ×2; 87186 ×2; 81003; 84484; 83880; 71045; 96375; 99285; 96366; J3475